=== PATIENT | male | born 1960 | race Caucasian/White ===

== ENCOUNTER 2022-11-04 12:35 | Emergency (ER) | payer OTHER, SELFPAY ==
[2022-11-04 12:46] VITALS: BP 150/93; PULSE 83; RESP 20; TEMP 36.4; O2SAT 100
--- NOTE | 2022-11-04 13:23 | ED.GENADULT ---
HPI - General Adult General Chief complaint: Eye Problems Stated complaint: left eye swollen Source: patient Mode of arrival: ambulatory Limitations: no limitations History of Present Illness HPI narrative: Patient presents for evaluation of a swollen red lesion to the left lower eyelid for the past week. Symptoms have progressed slowly. He has no associated pain. Denies drainage from the lesion. No fever, chills, nausea, vomiting. He does not were glasses or contacts. No visual disturbance. He tried applying warm compresses without considerable improvement in his symptoms. Related Data Home Medications Medication Instructions Recorded Confirmed alprazolam 0.5 mg tablet mg 11/04/22 atorvastatin 20 mg tablet mg 11/04/22 Allergies Allergy/AdvReac Type Severity Reaction Status Date / Time No Known Allergies Allergy Verified 11/04/22 12:50 Review of Systems Review of Systems: CONSTITUTIONAL: Denies fever, chills, or sweats. EYES: Denies visual changes, redness, or discharge. Reports swollen erythematous lesion to left lower eyelid ENT: Denies rhinorrhea, congestion, sore throat, or otalgia. CARDIOVASCULAR: Denies chest pain, palpitations, or edema. RESPIRATORY: Denies cough or dyspnea. GASTROINTESTINAL: Denies abdominal pain, nausea, vomiting, or diarrhea. GENITOURINARY: Denies dysuria or hematuria. SKIN: Denies rash or itching. MUSCULOSKELETAL: Denies back pain, joint pain, or myalgia. NEUROLOGIC: Denies headache, numbness, dizziness, or weakness. PSYCHIATRIC: Denies anxiety or depression. [facility] Past Medical History Medical History No pertinent past medical history Surgical History Surgical History No pertinent past surgical history Family History Family History Mother Family history non-contributory Social History Social History Smoking packs per day: 0.5 Smoking cigarettes per day: 10.0 Smoking status: Current every day smoker Substance use: never Living arrangements: alone Gender identity (if verbalized by the patient): Male Spiritual care concerns: No Exam Narrative: GENERAL: Well-appearing, well-nourished, and in no acute distress. HEAD: Normocephalic, atraumatic. EYES: PERRLA and EOMI. There is an approximately 3 mm pliable lesion to left lower eyelid with overlying erythema ENT: Nares clear, no rhinorrhea or epistaxis. Mucous membranes moist. Oropharynx without tonsillar hypertrophy exudate or other lesions. Bilateral TMs pearly naranjo nonbulging NECK: Supple. No adenopathy or masses. No carotid bruits or JVD CHEST: Clear to auscultation. No respiratory distress. No wheezes rales or rhonchi HEART: Regular rate and rhythm. No murmur heard. Normal peripheral pulses. ABDOMEN: Soft, nontender, nondistended, normal active bowel sounds. EXTREMITIES: Normal range of motion. No edema. SKIN: Warm, dry, no rash. NEURO: No focal deficits. Alert and oriented x3. PSYCH: Normal mood and affect. Course Course Emergency Course: This is a 62-year-old male who presented for evaluation of a lesion to left lower eyelid for the last week. Exam is most consistent with chalazion. Will cover with ophthalmic antibiotic ointment in the event that this is a hordeolum. Follow-up with ophthalmology. Continue to use warm compresses. For the ER for visual disturbance. Patient in agreement plan of care. Level of Care: Express Care Visit Vital Signs Vital signs: Vital Signs Temperature 36.4 C L 11/04/22 12:46 Pulse Rate 83 11/04/22 12:46 Respiratory Rate 20 11/04/22 12:46 Blood Pressure 150/93 H 11/04/22 12:46 Pulse Oximetry 100 11/04/22 12:46 Oxygen Delivery Room Air 11/04/22 12:46 Temperature 36.4 C L 11/04/22 12:46 Pulse Rate
== END 2022-11-04 13:37 | disposition home or self-care (01) ==
PROVIDERS: Emergency Provider Nurse Practitioner; PCP Family Medicine
DX: H00.15 Chalazion left lower eyelid (principal); F17.210 Nicotine dependence, cigarettes, uncomplicated
CPT/HCPCS: 99213; G0463

== ENCOUNTER 2022-11-20 15:30 | Outpatient (CLI) | payer OTHER, SELFPAY ==
--- NOTE | ~2022-11-20 | CT_ITS ---
EXAMINATION: CT lung screening DATE: 11/20/2022 15:46 INDICATION: smoking addiction TECHNIQUE: Computed tomography (CT) of the chest was performed without intravenous contrast. Addition al 3D reconstructions utilizing coronal maximum intensity projection (MIP) were performed. Automated exposure control and iterative reconstruction technique were employed. The dose-length product was 11 1.95 mGy-cm. COMPARISON: None FINDINGS: There are few calcified nodules in the right upper and middle lobes and calcified mediastinal lymph n odes consistent with old granulomatous disease. No pneumonia, pulmonary edema, pleural effusion or pn eumothorax. Heart size is normal. Atherosclerotic coronary artery calcific location. No pericardial e ffusion. Thoracic aorta is normal in caliber. No pathologically enlarged thoracic lymphadenopathy. Mi ld gynecomastia. Splenic calcifications also consistent with old granulomatous disease. Mild to moder ate thoracic spondylosis with multiple Schmorl's nodes. IMPRESSION: 1. Lung-RADS category 1: Negative. Continue annual screening with noncontrast low-dose chest CT in 12 months. Reviewed, dictated and finalized at location A. IMPRESSION: 1. Lung-RADS category 1: Negative. Continue annual screening with noncontrast l ow-dose chest CT in 12 months.
== END 2022-11-20 15:31 | disposition home or self-care (01) ==
LOC: ANHIMG 15:31
PROVIDERS: PCP Family Medicine; Visit Provider Family Medicine
DX: Z12.2 Encounter for screening for malignant neoplasm of respiratory organs (principal); Z87.891 Personal history of nicotine dependence
CPT/HCPCS: 71271

== ENCOUNTER 2023-01-30 13:23 | Outpatient (CLI) | payer OTHER, SELFPAY ==
--- NOTE | ~2023-01-30 | PE_ITS ---
EXAMINATION: PET_PETPSMAST_PT DATE: 01/30/2023 16:01 INDICATION: Prostate cancer TECHNIQUE: 8.956 mCi of pipflufolastat F-18 (18-F-DCFPyL) was administered i.v. Low dose computed to mography (CT) images were acquired from the base of the brain to the base of the brain to the proxima l thighs for attenuation correction and anatomic localization. Positron emission tomography (PET) rosa maria ges were acquired in the same distribution beginning 81 minutes after injection. Images including fus ed PET/CT images were reconstructed in axial, coronal, and sagittal planes. Automated exposure contro l technique was employed. The dose-length product was 612.57mGy-cm. COMPARISON: Chest CT dated 11/20/2022 FINDINGS: Head/neck: Typical pattern of symmetric physiologic increased activity in the lacrimal, parotid and submandibula r glands as well as along the mucosa of the nasal and oral cavities, the savage-, naso- and hypopharynx, the glottis and esophagus. No pathologically enlarged cervical lymphadenopathy or suspicious foci of increased uptake in the visualized head or neck. Chest: Mild emphysema and mild left apical scarring. Mild discoid atelectasis in the right lower lobe. Calci fied right upper and right middle lobe nodules along with calcified mediastinal lymph nodes consisten t with old granulomatous disease. No suspicious pulmonary nodules, pneumonia, pulmonary edema or pleu ral effusion. Heart size is normal. No pericardial effusion. Thoracic aorta is normal in caliber. No pathologically enlarged or PSMA avid lymphadenopathy. Abdomen/pelvis/proximal thighs: Physiologic renal accumulation and excretion of activity in the kidneys, bladder and along portions o f ureters. Status post prostatectomy. Normal degree and slightly heterogenous pattern of increased up take throughout the liver and spleen without radiologic correlate or dominant PSMA avid lesion. The g allbladder, pancreas and bilateral adrenal glands are normal. Moderate uptake scattered throughout th e bowels with typical duodenal and proximal jejunal predominance and without radiologic correlate, al so likely physiologic. No other abnormal foci of increased uptake or pathologically enlarged lymphade nopathy in the abdomen, pelvis or proximal thighs. Musculoskeletal: There is a small focus of subtle relative increased pacemaker activity with maximal SUV of 1.8 which accounting for small amount of misregistration artifact appears to be centered over the right scapula r spine near the base of the acromial process. There is a subtle focus of sclerosis here however appe ars relatively similar as seen in the contralateral left scapular spine. Additional small dense likel y bone islands at the left scapular spine which without appreciable PSMA activity. There is mild PSV may activity activity at the apex of the humeral head where there is degenerative cystic change assoc iated with severe right glenohumeral osteoarthritis. Additional mild likely degenerative uptake at th e bilateral acromioclavicular joints. Typical small foci of mild uptake at the dorsal root ganglia lo cated at the neural foramina in the cervical and lumbosacral spine. Additional mild likely degenerati ve uptake along portions of the bilateral sacroiliac joints. Tiny focus of minimal uptake with gabino l SUV of 1.4 no other lesions suspicious for metastatic disease. Located more laterally along the rig ht posterior iliac spine which is without radiologic correlate. Mild likely synovial uptake periphera l to approximately 3.5-4 cm cluster of heterotopic ossification overlying the right greater trochante r. IMPRESSION: 1. A couple tiny foci of minimal uptake at the right scapular spine and at the right posterior iliac spine, the former with possible associated small focus of sclerosis, the latter without radiologic co rrelate which raises some suspicion for but is not definitive for very early osseous metastatic disea s
== END 2023-01-30 13:24 | disposition home or self-care (01) ==
PROVIDERS: PCP Family Medicine; Visit Provider Urology
DX: C61 Malignant neoplasm of prostate (principal); R94.8 Abnormal results of function studies of other organs and systems
CPT/HCPCS: 78815; A9595

== ENCOUNTER 2023-07-04 17:12 | Emergency (ER) | payer OTHER, SELFPAY ==
[2023-07-04 17:18] VITALS: BP 167/72; RESP 16; TEMP 36.8; O2SAT 100
--- NOTE | 2023-07-04 18:34 | ED.GENADULT ---
HPI - General Adult General Chief complaint: Skin/Abscess/Foreign Body Stated complaint: L upper eyelid swelling Time Seen by Provider: 07/04/23 18:13 History of Present Illness HPI narrative: 62-year-old male presents for evaluation of redness to the left upper eyelid. Patient states over the last 2 weeks has had increased swelling of the left upper eyelid. Patient has been on antibiotics. Related Data Allergies Allergy/AdvReac Type Severity Reaction Status Date / Time No Known Allergies Allergy Verified 07/10/23 15:22 Review of Systems Review of Systems: All systems reviewed & are unremarkable except as noted in HPI and below PMFSH Past Medical History Medical History No pertinent past medical history Surgical History Surgical History No pertinent past surgical history Family History Family History Mother Family history non-contributory Father Heart disease Sibling No problems noted. 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 HEAD: normocephalic, atraumatic. EYES: Hordeolum of left upper eyelid no evidence of periorbital cellulitis or cellulitis EARS:TMS clear with good light reflex. THROAT: Pharynx clear, no exudate. NECK: Supple. No adenopathy, no masses. RESPIRATORY: Airway patent, respirations nonlabored. Clear to auscultation bilaterally, no rales, rhonchi, wheezing. CARDIOVASCULAR: Regular rate and rhythm without murmurs rubs or gallops. ABDOMINAL: Soft, nontender, nondistended, normal bowel sounds MUSCULOSKELETAL: Moves all extremities. Strength/ROM intact, No edema, No calf tenderness. NEURO: Alert. Cranial nerves II through XII intact. Grossly Course Course Emergency Course: 60-year-old male presented for evaluation for infection of the left upper eyelid that appears is consistent with a hordeolum. Patient is currently on antibiotics. Patient is doing warm compresses. Patient will have close follow-up with ophthalmology. Vital Signs Vital signs: Vital Signs Temperature 98.3 F 07/04/23 17:18 Respiratory Rate 16 07/04/23 17:18 Blood Pressure 167/72 H 07/04/23 17:18 Pulse Oximetry 100 07/04/23 17:18 Oxygen Delivery Room Air 07/04/23 17:18 Temperature 98.3 F 07/04/23 17:18 Respiratory Rate 16 07/04/23 17:18 Blood Pressure 167/72 H 07/04/23 17:18 Pulse Oximetry 100 07/04/23 17:18 Oxygen Delivery Room Air 07/04/23 17:18 Medical Decision Making Vital Signs Vital Signs: Vital Signs Temperature 98.3 F 07/04/23 17:18 Respiratory Rate 16 07/04/23 17:18 Blood Pressure 167/72 H 07/04/23 17:18 Pulse Oximetry 100 07/04/23 17:18 Oxygen Delivery Room Air 07/04/23 17:18 Temperature 98.3 F 07/04/23 17:18 Respiratory Rate 16 07/04/23 17:18 Blood Pressure 167/72 H 07/04/23 17:18 Pulse Oximetry 100 07/04/23 17:18 Oxygen Delivery Room Air 07/04/23 17:18
[2023-07-04] MEDS: HYDROcodone/acetaminophen (*CRX) 10-325 MG TABLET 1 TAB PO (18:52)
== END 2023-07-04 18:55 | disposition home or self-care (01) ==
PROVIDERS: Emergency Provider Emergency Medicine; PCP Family Medicine
DX: H00.016 Hordeolum externum left eye, unspecified eyelid (principal); F17.210 Nicotine dependence, cigarettes, uncomplicated
CPT/HCPCS: 99283; A9270

== ENCOUNTER 2023-09-19 08:46 | Outpatient (CLI) | payer OTHER, SELFPAY ==
[2023-09-19 19:00] LABS: Basophils Absolute Auto 0.1 K/mm3 (0.0-0.1); Basophils Percent Auto 0.8 % (0.2-1.2); Eosinophils Absolute Auto 0.1 K/mm3 (0-0.3); Eosinophils Percent Auto 1.2 % (0-4.4); Hematocrit 48.6 % (42.0-52.0); Hemoglobin 15.6 g/dL (14.0-18.0); Immature Granulocyte Absolute 0.04 K/mm3 (0.00-0.031); Immature Granulocyte Percent A 0.5 % (0-0.5); Lymphocytes Absolute Auto 2.31 K/mm3 (0.9-3.2); Lymphocytes Percent Auto 29.5 % (18.3-44.2); Mean Corpuscular HGB Conc 32.1 g/dl (32-36); Mean Corpuscular Hemoglobin 31.2 pg (26-34); Mean Corpuscular Volume 97.2 fl (80-100); Mean Platelet Volume 9.7 fl (7.4-10.4); Monocytes Absolute Auto 0.6 K/mm3 (0.1-0.6); Monocytes Percent Auto 7.8 % (2.6-8.5); Neutrophils Absolute Auto 4.7 K/mm3 (1.3-6.7); Neutrophils Percent Auto 60.2 % (45.5-73.1); Platelet Count Result 258 k/mm3 (150-375); Red Cell Distribution Width 12.8 % (11.5-14.5); White Blood Count 7.8 K/mm3 (4.5-10.0)
[2023-09-19 19:36] LABS: Alanine Aminotransferase 26 U/L (6-50); Albumin Level 4.3 g/dL (3.5-5.1); Alkaline Phosphatase 103 U/L (38-126); Anion Gap 8 mmol/L (8-16); Aspartate Amino Transferase 32 U/L (17-59); Bilirubin,Total 0.6 mg/dL (0.2-1.3); Blood Urea Nitrogen 9 mg/dL (9-20); Calcium 9.3 mg/dL (8.4-10.2); Carbon Dioxide 26 mmol/L (22-30); Chloride 103 mmol/L (98-107); Cholesterol 134 mg/dL (0-200); Estimated Glomerular Filt Rate > 60; Glucose 102 mg/dL (65-110); HDL Direct 43 mg/dL; Potassium 4.1 mmol/L (3.4-5.0); Sodium 137 mmol/L (137-145); Triglycerides 99 mg/dL (<150)
[2023-09-19 19:47] LABS: LDL Cholesterol Direct 66 mg/dL
[2023-09-19 20:03] LABS: Prostate Specific Antigen 4.7 ng/mL (< OR = 4.0)
== END 2023-09-19 08:47 | disposition home or self-care (01) ==
LOC: ANHBWCLAB 08:46
PROVIDERS: PCP Nurse Practitioner Adult Health; Visit Provider Nurse Practitioner Adult Health
DX: Z12.5 Encounter for screening for malignant neoplasm of prostate (principal); E78.5 Hyperlipidemia, unspecified
CPT/HCPCS: 36415; 80053; 80061; 84153; 85025; G0103

== ENCOUNTER 2023-11-15 12:28 | Outpatient (CLI) | payer OTHER, SELFPAY ==
--- NOTE | ~2023-11-15 | PE_ITS ---
EXAMINATION: PET_PETPSMAST_PT DATE: 11/15/2023 14:44 INDICATION: Prostate cancer TECHNIQUE: 9.022 mCi of pipflufolastat F-18 (18-F-DCFPyL) was administered i.v. Low dose computed to mography (CT) images were acquired from the base of the brain to the base of the brain to the proxima l thighs for attenuation correction and anatomic localization. Positron emission tomography (PET) rosa maria ges were acquired in the same distribution beginning 86 minutes after injection. Images including fus ed PET/CT images were reconstructed in axial, coronal, and sagittal planes. Automated exposure contro l technique was employed. The dose-length product was 571.01mGy-cm. COMPARISON: 01/30/2023 FINDINGS: Head/neck: Typical pattern of symmetric physiologic increased activity in the lacrimal, parotid and submandibula r glands as well as along the mucosa of the nasal and oral cavities, the savage-, naso- and hypopharynx, the glottis and esophagus. There is also a typical pattern of symmetric tiny foci of mild likely phy siologic neural ganglia uptake at a few bilateral cervical neural foramina. No pathologically enlarge d cervical lymphadenopathy or suspicious foci of increased uptake in the visualized head or neck. Chest: Mild emphysema with unchanged mild left apical pleural-parenchymal scarring. Calcified right upper an d middle lobe lobe nodules along with calcified mediastinal lymph nodes consistent with old granuloma tous disease. No suspicious pulmonary nodules, pneumonia, pulmonary edema or pleural effusion. Heart size is normal. No pericardial effusion. Thoracic aorta is normal in caliber. No pathologically enlar ged or PSMA avid thoracic lymphadenopathy. Abdomen/pelvis/proximal thighs: Physiologic renal accumulation and excretion of activity in the kidneys, bladder and along portions o f ureters. Status post prostatectomy. There are couple foci of increased uptake along the posterolate ral margin of the bladder with maximal SUV of 16.6 on the left and 15.3 on the right. These are locat ed posterior to the ureterovesicular junctions at the expected site of the bilateral seminal vesicles which raises concern for locally recurrent disease. Normal degree and slightly heterogenous pattern of increased uptake throughout the liver and spleen without radiologic correlate or dominant PSMA laith d lesion. The gallbladder, pancreas and bilateral adrenal glands are normal. Moderate uptake scattere d throughout the bowels with typical duodenal and proximal jejunal predominance and without radiologi c correlate, also likely physiologic. No other abnormal foci of increased uptake or pathologically en larged lymphadenopathy in the abdomen, pelvis or proximal thighs. There are additional small foci of mild likely physiologic neural ganglia uptake at the neural foramina at the sacral and lower lumbar s pine. Musculoskeletal: Severe bilateral glenohumeral osteoarthritis, right more advanced than left. No significant change in a small focus of mild uptake with maximal SUV of 1.9 associated with a subtle sclerotic lesion along the right scapular spine which remains suspicious for osseous metastatic disease. The previous noted small focus of mild uptake at the right posterior iliac spine is no longer identified. Again seen is a 3.5-4 cm cluster of heterotopic ossification overlying the right greater trochanter with periphera l mild likely synovial uptake. No other suspicious lytic, sclerotic or PSMA avid bone lesions identif ied. Small region of relatively intense extravasated activity at the site of injection at the right a ntecubital fossa. IMPRESSION: 1. 2 small foci of moderate uptake along the left and right posterolateral margins of the bladder pos terior to the ureterovesicular junctions in the expected location of the seminal vesicles which appea r to been resected along with the prostate but which raises concern for locally recurrent disease. 2. Unchanged t
== END 2023-11-15 12:29 | disposition home or self-care (01) ==
LOC: ANHIMG 12:33
PROVIDERS: PCP Nurse Practitioner Adult Health; Visit Provider Radiology Radiation Oncology
DX: C61 Malignant neoplasm of prostate (principal); C79.51 Secondary malignant neoplasm of bone
CPT/HCPCS: 78815; A9595

== ENCOUNTER 2025-02-02 15:54 | Emergency (ER) | payer OTHER, SELFPAY ==
[2025-02-02] VITALS (10 sets, daily range): BP systolic 143–188; BP diastolic 80–87; PULSE 71–91; RESP 13–19; TEMP 36.4; O2SAT 99–100
--- NOTE | ~2025-02-02 | XR_ITS ---
CHEST RADIOGRAPH, PA AND LATERAL CLINICAL HISTORY: dizziness . COMPARISON: None available TECHNIQUE: PA and lateral views of the chest. FINDINGS The cardiomediastinal silhouette is unremarkable. The lungs are clear. Visualized osseous structures and soft tissues are unremarkable. IMPRESSION: No focal infiltrate or effusion. Reviewed, dictated and finalized at location A.
--- NOTE | ~2025-02-02 | CT_ITS ---
History: Vertigo PROCEDURE: CT head without contrast. COMPARISON: None TECHNIQUE: Axial imaging of the head performed from the skull base to the vertex without IV contrast. Sagittal a nd coronal reformations obtained. DLP: 681 mGy-cm FINDINGS: The ventricles are normal in size, shape and position. There is no mass, mass effect or midline shift. There is no abnormal extra-axial fluid collection or intracranial hemorrhage. Dense opacification of the left maxillary sinus. The remaining paranasal sinuses are unremarkable. The mastoid air cells are well aerated. No acute displaced fractures within the overlying cranium. Impression: No acute intracranial hemorrhage or suspicious mass effect. Inflammatory sinus disease. Reviewed, dictated and finalized at location A. Impression: No acute intracranial hemorrhage or suspicious mass effect. Inflammatory sinus disease.
--- OUTSIDE RECORDS SUMMARY | 2025-02-02 15:57 | XMS_ITS | Encounter Summary ---
Author Organization [facility] Healthcare Address [address] [place] [address] Care Team Providers Care Pathology Manager Name Role Phone Sanya Fry MD Primary Care Provider Bambi Reed MD, Mitul Velazquez [facility] Encounter Details Date Type Department Care Team (Late st Contact Info) Description 07/05/2020 Telephone [facility] [address] [place] [id number] Delmy Martinez, RT Social History Tobacco Use Types Packs/Day Years Used Date Smoking Tobacco: Every Day Cigarettes 1.5 46.4 Started: 1978 Smokeless Tobacco: Never Alcohol Use Standard Drinks/Week Comments Not Currently 0 (1 standard drink = 0.6 oz pur e alcohol) PHQ-2 Answer Date Recorded PHQ-2 Score 2 07/13/2019 Sex and Gender Information Value Date Recorded Sex Assigned at Male 11/11/2018 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
--- OUTSIDE RECORDS SUMMARY | 2025-02-02 15:57 | XMS_ITS | Encounter Summary ---
Author Organization [facility] Healthcare Address [address] [place] [address] Care Team Providers Care Fresh Meat Grader Name Role Phone Sanya Fry MD Primary Care Provider Bambi Reed MD, Mitul Velazquez [facility] Encounter Details Date Type Department Care Team (Late st Contact Info) Description 05/06/2020 Telephone [facility] [address] [place] [id number] Delmy Martinez, RT Social History Tobacco Use Types Packs/Day Years Used Date Smoking Tobacco: Every Day Cigarettes 1.5 46.4 Started: 1978 Smokeless Tobacco: Never Alcohol Use Standard Drinks/Week Comments Not Currently 0 (1 standard drink = 0.6 oz pur e alcohol) PHQ-2 Answer Date Recorded PHQ-2 Score 2 07/13/2019 Sex and Gender Information Value Date Recorded Sex Assigned at Male 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
--- OUTSIDE RECORDS SUMMARY | 2025-02-02 15:57 | XMS_ITS | Continuity of Care Document ---
Author Organization [facility] Address [address] [place] [address] Phone Care Team Providers Care Cyanide Furnace Operator Name Role Phone Marko Ritter Unavailable Unavailable Procedures Procedure Date Post-op Follow-up Visit Post-op Follow-up Visit Remove Cataract, Insert Lens Eye Exam, New Patient IOLMaster Refraction Advance Directives Directive Yes / No Effective Date File Name No Information Encounters Encounter Description Practice Location Reason(s) For Visit Diagnoses Date Provider Providers Copied on Encounter [facility], [id number] [place] [address] [address], [place], [place], [id number], tel:[phone] [facility] No Information Dec-0 2-200 9 Krishnasamy Marko. [address] [address], [place], [place], [facility], [place]. tel:[phone] [facility], [address], [place], [place], [id number], [place] tel:[phone] [facility] No Information Jul-2 0-200 9 Krishnasamy Marko. [address] [facility] [address], [place], [place], [facility], [place]. tel:[phone] [facility], [address], [place], [place], [id number], [place] tel:[phone] [facility] No Information Jul-1 9-200 9 Krishnasamy Marko. [address], [address], [place]. tel:[phone] Referring Provider: Alyson Barber, [address] [place], [address]. tel:[phone] [facility], [address] [facility] [address], [place], [place], [id number], [place] tel:[phone] [facility] No Information [address]. [address], [facility], [place]. tel:[phone] Referring Provider: Marko ferguson, [facility] [address], [facility]. tel:[phone] Family History Family Member Type Diagnosis Age At Onset No Information Payers Payer name Insurance type Covered green party ID Authoriza tion(s) No Information Social History Type Description Quantity Date Captured Comments Sex Male Smoking Status No Information Chief Complaint And Reason For Visit No Information Reason For Referral Reason For Referral No Information History Of Present Illness Encounter Date Complaint History Of Prese nt Illness No Information Functional Status Date Functional Assessmen t No Information Instructions Date Instruction Additional Infor mation No Information Assessments Type Assessment Date No Information Patient Care Teams Name Effective Dates (start - stop) Status Members No Information
--- OUTSIDE RECORDS SUMMARY | 2025-02-02 15:58 | XMS_ITS ---
Author Organization [facility] Address [address] [facility] [place] [address] Care Team Providers Care Wool Sacker Name Role Phone Bambi Reed MD, Mitul Velazquez Unavailable Active Problems Problem Noted Date Diagnosed Date History of prostate cancer 07/23/2022 Chronic right shoulder pain 07/23/2022 Tobacco abuse 07/20/2021 Malignant neoplasm of prostate 01/07/2019 Cancer Staging:Pathologic:Stage IIIB(pT3b, pN0, cM0, PSA: 5.8, Grade Group: 3) - Unsigned Overview (01/07/2019): Added automatically from request for surgery History of anal cancer 12/30/2018 Mixed hyperlipidemia 07/04/2017 Primary insomnia 07/04/2017 BMI 26.0-26.9,adult 05/14/2017 Assessment & Plan (05/14/2017 3:44 PM CDT): Recommended patient to continue to increase heart healthy diet with adequate fruits, vegetables, and plenty of water along with mild-moderate daily exercise as tolerated. History of malignant neoplasm of colon 6 Condyloma acuminatum 07/28/2013 Current Treatment and Therapy Plans No current plan information found. Past Treatment and Therapy Plans No past plan information found. Lifetime Dose Tracking * Chemical Lifetime Dose Automatic Entry Manual Entr y Fluoro Time 0.7 minutes 0.7 minutes 0 minutes Air kerma at the reference point (Ka,r) 83.25 mGy 8 3.25 mGy 0 mGy DLP 2,088 mGycm 2,088 mGycm 0 mGycm Treatment Summaries Malignant neoplasm of prostate (HCC)* Images from the original note were not included. [facility] [address] [place] [address] This Survivorship Care Plan is a cancer treatment summary and follow-up plan and is provided to youto keep with your health care records and to share with your primary care provider or any of your doctors and nurses. This summary is a brief record of major aspects of your cancer treatment not a detailed or comprehensive record of your care. You should review this with your cancer provider. Treatment Summary and Survivorship Care Plan for Prostate Cancer General Information Patient name Matt Linda (home) [phone] (work) Date of 1960 Health Care Providers (Including Names, Institutions) Provider Name: Contact Information: Primary Care Physician Sanya Fry MD [phone] Surgeon Mitul Lacy Jr., MD [phone] Urologist Mitul Lacy Jr., MD [phone] Other Providers Treatment Summary Cancer Diagnosis Information Diagnosis Malignant neoplasm of prostate (CMS/HCC) Diagnosis date 12/10/2018 Staging information pT3b Panther Burn Score 7 PSA at diagnosis 5.75 Treatment Completed Surgery Surgery date 02/04/2019 Surgical procedure / location / findings Laparoscopic pelvic adhesiolysis and bilateral pelvic lymphadenectomy Laparoscopic nerve-sparing radical retropubic prostatectomy Radiation No Systemic Therapy (chemotherapy, hormonal therapy, other)-None Research Studies No available studies Treatment Ongoing: No, not at this time Persistent symptoms or side effects that have continued after finishing treatment: Erectile dysfunction, Incontinence Follow-up Care Plan Your follow-up care plan is design to inform you and primary care providers regarding the recommended and required follow-up, cancer screening and routine health maintenance that is needed to maintain optimal health. Schedule of Clinical Visits Coordinating Provider When/How often Mitul Lacy Jr., MD Yearly Cancer Surveillance or other Recommended Tests Coordinating Provider Test How Often Surgeon: Mitul Lacy Jr., MD PSA (Prostate Specific Antigen) Every 3 months for 2 years Urologist or Primary Care Provider: Mitul Lacy Jr., MD PSA (Prostate Specific Antigen) Every 6-12 months for year 3 - 5 Possible late- and long-term effects that someone with this type of cancer and treatment may experience: Urinary frequency Swelling (lymphedema) You may experience erectile dysfunction and/or incontinence care home. Please discuss with your health care provider if these continue 6 months post-surgery as there may be an available treatment foryour condition. Please continue to see your primary care provider for all general health care recommended for a patient your age, including cancer screening tests. Any symptoms should be brought to the attention of your provider: Anything that represents a brand new symptom; Anything that represents a persistent symptom; Anything you are worried about that might be related to the cancer coming back. Cancer survivors may experience issues with the areas listed below. If you have any concerns in these or other areas, please speak with your doctors or nurses to find out how you can get help with them. Anxiety and depression Emotional and mental health Fatigue Fertility Financial advice or assistance Insurance Memory or concentration loss Parenting Physical functioning School/work Sexual functioning Stopping smoking Weight changes Other A number of lifestyle/behaviors can affect your ongoing health, including the risk for the cancer coming back or developing another cancer. Discuss these recommendations with your doctor or nurse: Eat a healthy diet: focus on lean meats and proteins, more fruits, vegetables and whole grains and low in sugars and fats. Limit red meat and avoid processed meat. Maintain a healthy weight; avoid being overweight. Aim for a normal body mass index (BMI) of 18.5-24.9. Help learning to eat healthier, call the small electric engine technician at: [facility] . Have an active lifestyle, strive for 30 minutes of moderate exercise 5 times a week and strength orresistance training at least twice a week. Use broad-spectrum (UVA+UVB) sunscreen with SPF 30 or greater, is water resistant, limit time spentin the sun (10 am-4pm), wear hat, wear UV protective clothing, wear sunglasses. Never use a tanningbed. Skin that was irradiated may be more sensitive over your lifetime. Do not smoke or chew tobacco; participate in a smoking cessation program. Limit alcohol intake, 1 drink per day for a woman and 2 drinks per day for a man. Resources you may be interested in: [facility] Cancer [place] A National Cancer [place] [facility] http://www.[facility]/ [facility] Information Center 1st floor of [place] [facility] [phone]. Computer access, educational material, counseling services (FREE) Cancer Resources: www.cancer.net The U[employer] Care Foundation www.Urologyhealth.org Spring[employer] Beyond Cancer: https://survivorship.cancer.gov/ an online tool for cancer survivors andcaregivers created by the [place] [employer] Society and the National Cancer [place]. It provides: Information on dealing with side effects from cancer and treatment Caregivers with support and resources Practical advice about talking to friends and family about cancer Questions to ask their health care team Resolved Problems Problem Noted Date Diagnosed Date Resolved Date Acute bacterial conjunctivitis of right eye 05/14/2017 07/04/2017 Assessment & Plan (05/14/2017 3:44 PM CDT): Recommended use of Polytrim eyedrops 2 drops every 6 hours instill into right eye for at least 10 days along with fluticasone nasal spray to use once daily to assist to keep the inner canthus/tear duct open on the right side considering inflammation in office today. I also educated patient about frequent hand washing and a patient of warm compresses to assist with infection as well. He was advised to follow up in our office there is no improvement only worsening of symptoms in the next 48-72 hours otherwise follow up in office with Dr. 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
--- OUTSIDE RECORDS SUMMARY | 2025-02-02 15:58 | XMS_ITS | Referral Summary ---
Author Organization [facility] Address [address] [facility] [place] [address] Care Team Providers Care Liaison Officer Name Role Phone Bambi Reed MD, Mitul Hobbs Allergies No known active allergies Medications ALPRAZolam (XANAX) 0.5 mg tabletIndicatio ns:anxiety Take 1 tablet (0.5 mg total) by mouth 2 (two) times a day as needed for anxiety 60 tablet 5 05/16/2022 Active atorvastatin (LIPITOR) 20 mg tablet Take 1 tablet (20 mg total) by mouth daily 90 tablet 3 07/23/2022 Active meloxicam (MOBIC) 15 mg tablet Take 1 tablet (15 mg total) by mouth daily With food 30 tablet 1 07/23/2022 Active Active Problems Problem Noted Date Diagnosed Date [...] neoplasm of colon 6 Condyloma acuminatum 07/28/2013 Resolved Problems Problem Noted Date Diagnosed Date [...] Malignant neoplasm of anal canal 09/08/2013 07/13/2019 Immunizations Immunization Administration Dates Next Due Influenza, Quadrivalent, Spl it, Preservative Free, Intradermal 07/02/2016 Influenza, Quadrivalent, Spl it, Preservative Free, Intramuscular 07/23/2022,07/24/2021,07/18/2020,06/26,07/04/2017 Influenza, Trivalent, IM (MDV) 07/01/2015,2008 Influenza, Unspecified 06/13/2019 Social History Tobacco Use Types Packs/Day Years Used Date Smoking Tobacco: Every Day Cigarettes 0.3 46.4 Started: 1978 Smokeless Tobacco: Never Tobacco Cessation:Ready to Q uit: Not Asked; Counseling Given: Yes Alcohol Use Standard Drinks/Week Comments Not Currently 0 (1 standard drink = 0.6 oz pur e alcohol) PHQ-2 Answer Date Recorded PHQ-2 Total Score (If total score is 3 or more points, staff should administer the PHQ-9) 0 07/23/2022 Sex and Gender Information Value Date Recorded Sex Assigned at Male 11/11/2018 6:13 AM STOPPER SETTER Legal Sex Male 4:38 AM STOPPER SETTER Gender Identity Male 02/15/2022 12:05 PM CDT Sexual Orientation Straight 11/11/2018 6: 13 AM STOPPER SETTER Last Filed Vital Signs Vital Sign Reading Time Taken Comments Blood Pressure 128/78 07/23/2022 1:09 PM STOPPER SETTER Pulse 95 07/23/2022 1:09 PM STOPPER SETTER Temperature 36.6 C (97.8 F) 07/20/2021 12:59 PM STOPPER SETTER Respiratory Rate 16 07/20/2021 12:59 PM STOPPER SETTER Oxygen Saturation 97% 07/23/2022 1:09 PM STOPPER SETTER Inhaled Oxygen Concentration - - Weight 85.3 kg (188 lb) 07/23/2022 1:09 PM STOPPER SETTER Height 188 cm (6' 2) 07/23/2022 1:09 PM STOPPER SETTER Body Mass Index 24.14 07/23/2022 1:09 PM STOPPER SETTER Plan of Treatment Not on file Procedures Procedure Name Priority Date/Time Associated Diagnosis Comments PSA SCREEN Routine 07/04/2022 8:10 AM CDT Screening PSA (prostate specific antigen) STOOL DNA COLOGUARD Routine 07/31/2021 8:15 AM STOPPER SETTER Special screening for malignant neoplasms, colon Screening for malignant neoplasm of the rectum HEPATITIS C AB REFLEX RNA QUANT PCR Routine 06/20/2017 7:10 AM CDT from Last 3 Months or Most Recently Relevant to Health Maintenance Results * PSA screen (07/04/2022 8:10 AM CDT) PSA-Total 1.79 <=5.40 ng/mL KAYLEN RODRIGUEZ (CHANDA) Comment: Interpretive Data AGE SEX REFERENCE INTERVAL 0 minutes-150 years Female None 0 minutes-49 years Male None 50-59 years Male 0-3.90 60-69 years Male 0-5.40 70-79 years Male 0-6.20 80-150 years Male 0-6.20 The May PSA Total assay procedure was used. Results from different manufacturers or methods may not be comparable. Serial testing should be performed using the same method. Current interpretive data last revised 22. Testing performed by: [facility], [address] [place] [address]., [id number] Blood 07/04/2022 8:10 AM CDT 07/04/2022 11:52 AM CDT Narrative KAYLEN RODRIGUEZ (CHANDA) - 07/04/2022 1:15 PM CDT fasting us Sanya Fry MD LAB BLOOD ORDERABLES Fi nal Result KAYLEN RODRIGUEZ ([place]) 1 [facility] [place] [address] * Stool DNA - Cologuard (07/31/2021 8:15 AM STOPPER SETTER) Stool DNA - Cologuard Negative Negative [facility] (CLIA #:[id number]) Comment: NEGATIVE TEST RESULT. A negative Cologuard result indicates a low likelihood that a colorectal cancer (CRC) or advanced adenoma (adenomatous polyps with more advanced pre-malignant features) is present. The chance that a person with a negative Cologuard test has a colorectal cancer is less than 1 in 1500 (negative predictive value >99.9%) or has an advanced adenoma is less than 5.3% (negative predictive value 94.7%). These data are based on a prospective cross-sectional study of 10,000 individuals at average risk for colorectal cancer who were screened with both Cologuard and colonoscopy. (Derick Duffy et al, N Engl J Med 2014;370(14):1571-1121) The normal value (reference range) for this assay is negative. COLOGUARD RE-SCREENING RECOMMENDATION: Periodic colorectal cancer screening is an important part of preventive healthcare for asymptomatic individuals at average risk for colorectal cancer. Following a negative Cologuard result, the [place] Cancer Society and U.S. Multi-Society Task Force screening guidelines recommend a Cologuard re-screening interval of 3 years. References: [place] Cancer Society Guideline for Colorectal Cancer Screening: https://www.cancer.org/cancer/cnzpn-knjczr-hhtkkn/mqrgyzqpb-jtbdxernd-kzgaxbv/ac s-rec ommendations.html.; Rudolph LOPEZ, Jose VIGIL, Josué ANDERSON, Colorectal Cancer Screening: Recommendations for Physicians and Patients from the U.S. Multi-Society Task Force on Colorectal Cancer Screening , Am J Gastroenterology 2017; 112:0163-3043. TEST DESCRIPTION: Composite algorithmic analysis of stool DNA-biomarkers with hemoglobin immunoassay. Quantitative values of individual biomarkers are not reportable and are not associated with individual biomarker result reference ranges. Cologuard is intended for colorectal cancer screening of adults of either sex, 45 years or older, who are at average-risk for colorectal cancer (CRC). Cologuard has been approved for use by the U.S. FDA. The performance of Cologuard was established in a cross sectional study of average-risk adults aged 50-84. Cologuard performance in patients ages 45 to 49 years was estimated by sub-group analysis of near-age groups. Colonoscopies performed for a positive result may find as the most clinically significant lesion: colorectal cancer [4.0%], advanced adenoma (including sessile serrated polyps greater than or equal to 1cm diameter) [20%] or non- advanced adenoma [31%]; or no colorectal neoplasia [45%]. These estimates are derived from a prospective cross-sectional screening study of 10,000 individuals at average risk for colorectal cancer who were screened with both Cologuard and colonoscopy. (Derick Hernandez. et al, N Engl J Med 2014;370(14):5406-6872.) Cologuard may produce a false negative or false positive result (no colorectal cancer or precancerous polyp present at colonoscopy follow up). A negative Cologuard test result does not guarantee the absence of CRC or advanced adenoma (pre-cancer). The current Cologuard screening interval is every 3 years. ([place] Cancer Society and U.S. Multi-Society Task Force). Cologuard performance data in a 10,000 patient pivotal study using colonoscopy as the reference method can be accessed at the following location: www.[employer]/results. Additional description of the Cologuard test process, warnings and precautions can be found at www.cologuard.com. Stool 07/31/2021 8:15 AM STOPPER SETTER 08/01/2021 12:22 PM STOPPER SETTER us Sanya Fry MD LAB BODY FLUIDS AND STO OLS ORDERABLES Final Result [facility] (CLIA #:[id number]) [place] [address] * Hepatitis C Antibody Reflex Hepatitis C RNA Quantitative PCR (06/20/2017 7:10 AM CDT) Hep C Ab Negative Negative KAYLEN Blood specimen (specimen) 06/20/2017 7:10 AM CDT 06/20/2017 1:49 PM CDT us Sanya Fry MD LAB MICROBIOLOGY - GENE RAL ORDERABLES Final Result Performing Organization Address City/[facility] Co de Phone Number KAYLEN [address] Department [place] [address] from Last 3 Months or Most Recently Relevant to Health Maintenance Insurance [employer] MULTIPLAN C[employer] OTHER COMMERCIAL GENERIC [facility] COMMERCIAL GENERIC Advance Directives For more information, please contact: [phone] * Full Code (Latest Code Status on File) Date Activated Date Inactivated Comments 02/04/2019 2:22 PM 02/05/2019 7:50 PM * Full Code Date Activated Date Inactivated Comments 12/10/2018 10:45 AM 12/11/2018 4:46 AM Care Teams Liaison Officer Relationship Specialty Start Date End Date Mitul Lacy Jr., MD Surgeon Urology 12/30/18
--- OUTSIDE RECORDS SUMMARY | 2025-02-02 15:58 | XMS_ITS | Clinical Summary ---
Author Organization [facility] Address [address] [facility] [place] [address] Care Team Providers Care Flight Technician Name Role Phone Bambi Reed MD, Mitul [...] Trivalent, IM (MDV) 07/01/2015,2008 Influenza, Unspecified 06/13/2019 Surgical History Surgery Date Site/Laterality Comments OPEN REDUCTION INTERNAL FIXATION Left ORIF- left ankle PORT REMOVAL 02/15/2014 N/A PORT PLACEMENT CHEST >5 YEARS 09/16/2013 N/A EXAMINATION UNDER ANESTHESIA 04/07/2014 Exam under anesthesia, biopsy of anal mass and perineal biopsy EXAMINATION UNDER ANESTHESIA 08/17/2013 Exam under anesthesia, wide excision of perianal condyloma. Biopsies. PROSTATE BIOPSY COLONOSCOPY CATARACT EXTRACTION EXTRACAPSULAR W/ INTRAOCULAR LENS IMPLANTATION Bilateral CATARACT EXTRACTION 10 years ago Medical History Medical History Date Comments Malignant neoplasm of rectum (HCC) Cancer, rectal Anxiety Hypercholesteremia Family History Medical History Relation Name Comments Heart attack Father Cancer Maternal Grandfather Sabrina mae Colon cancer Maternal Grandmother Ovarian cancer Mother Colon cancer Mother's Brother Heart disease Other 1 Family history of Heart problems; Cancer Other 2 Family history of Cancer, unknown; Diabetes type II Other 3 Family hist ory of Diabetes mellitus type 2; Arthritis Other 4 Family history of Arthritis; Hypertension Other 5 Family history of Hypertension; Stroke Other 6 Family history of Stroke; Breast cancer Sister 1 Cancer Sister 2 Lina linda Relation Name Status Comments Father Maternal Grandfather Sabrina mae Maternal Grandmother Mother Mother's Brother Other 1 Other 2 Other 3 Other 4 Other 5 Other 6 Sister 1 Sister 2 Lina linda Social History Tobacco Use Types Packs/Day Years [...] Sex Assigned at Male 11/11/2018 6:13 AM DRIER HELPER Legal Sex Male 4:38 AM DRIER HELPER Gender Identity Male 02/15/2022 12:05 PM CDT Sexual Orientation Straight 11/11/2018 6: 13 AM DRIER HELPER Obstetrics History Last Filed Vital Signs Vital Sign Reading Time Taken Comments Blood Pressure 128/78 07/23/2022 1:09 PM DRIER HELPER Pulse 95 07/23/2022 1:09 PM DRIER HELPER Temperature 36.6 C (97.8 F) 07/20/2021 12:59 PM DRIER HELPER Respiratory Rate 16 07/20/2021 12:59 PM DRIER HELPER Oxygen Saturation 97% 07/23/2022 1:09 PM DRIER HELPER Inhaled Oxygen Concentration - - Weight 85.3 kg (188 lb) 07/23/2022 1:09 PM DRIER HELPER Height 188 cm (6' 2) 07/23/2022 1:09 PM DRIER HELPER Body Mass Index 24.14 07/23/2022 1:09 PM DRIER HELPER Plan of Treatment Health Maintenance Due Date Last Done Comments DTaP/Tdap/Td Vaccine (1 - Tdap) 1971 Hepatitis B Screening 1978 Pneumococcal vaccine <65 (1 of 2 - PCV) 1979 Lung Cancer Screening 2010 Zoster Vaccine (1 of 2) 2010 Prostate Cancer Screening-PSA 07/04/2023, 07/12/2021, 06/23/2020, Additional history exists Depression Screening 07/23/2023 07/23/2022, 02/27/2022, 07/20/2021, Additional history exists Regular Well Visit/Exam 18-64 07/23/2023, 07/20/2021, 07/18/2020, Additional history exists Colon Cancer Screening-DNA Stool 07/31/2024 07/31/2021, 07/16/2018, 09/11/2013 Influenza Vaccine (Season Ended) 2025 07/23/2022, 07/24/2021, 07/18/2020, Additional history exists Hepatitis C Screening Completed 06/20/2017, 017 Procedures Procedure Name Priority Date/Time Associated Diagnosis Comments PSA SCREEN Routine 07/04/2022 8:10 AM CDT Screening PSA (prostate specific antigen) STOOL DNA COLOGUARD Routine 07/31/2021 8:15 AM DRIER HELPER Special screening for malignant neoplasms, colon Screening [...] data last revised 22. Testing performed by: [facility], [address] [place] [address], [place]., [address] Blood 07/04/2022 8:10 AM CDT 07/04/2022 11:52 AM CDT Narrative KAYLEN RODRIGUEZ (CHANDA) - 07/04/2022 1:15 PM CDT fasting us Sanya Fry MD LAB BLOOD ORDERABLES Fi nal Result KAYLEN RODRIGUEZ (CHANDA) 1 [facility] Department [place] [address] * Stool DNA - Cologuard (07/31/2021 8:15 AM DRIER HELPER) Stool DNA - Cologuard Negative Negative [facility] (CLIA #:[id number]) Comment: NEGATIVE TEST RESULT. A negative Cologuard [...] Duffy et al, N Engl J Med 2014;370(14):2283-7315) The normal value (reference range) for this assay is negative. COLOGUARD RE-SCREENING RECOMMENDATION: Periodic colorectal cancer screening is an important part of preventive healthcare for asymptomatic individuals at average risk for colorectal cancer. Following a negative Cologuard result, the [place] Cancer Society and U.S. Multi-Society Task Force screening guidelines recommend a Cologuard re-screening interval of 3 years. References: [place] Cancer Society Guideline for Colorectal Cancer Screening: https://www.cancer.org/cancer/zqsyn-zhzmaj-nfwomi/gizqmhzcp-occeczjfw-ogepiig/ac s-rec ommendations.html.; Rudolph LOPEZ, Jose VIGIL, Josué ANDERSON, Colorectal Cancer Screening: Recommendations for Physicians and Patients from the U.S. Multi-Society Task Force on Colorectal Cancer Screening , Am J Gastroenterology 2017; 112:3324-9119. TEST DESCRIPTION: Composite algorithmic analysis of stool [...] screened with both Cologuard and colonoscopy. (Derick oJnes al, N Engl J Med 2014;370(14):7092-9956.) Cologuard may produce a false negative or false positive result (no colorectal cancer or precancerous polyp present at colonoscopy follow up). A negative Cologuard test result does not guarantee the absence of CRC or advanced adenoma (pre-cancer). The current Cologuard screening interval is every 3 years. ([place] Cancer Society and U.S. Multi-Society Task Force). Cologuard performance data in a 10,000 patient pivotal study using colonoscopy as the reference method can be accessed at the following location: www.[employer]/results. Additional description of the Cologuard test process, warnings and precautions can be found at www.cologuard.com. Stool 07/31/2021 8:15 AM DRIER HELPER 08/01/2021 12:22 PM DRIER HELPER us Sanya Fry MD LAB BODY FLUIDS AND STO OLS ORDERABLES Final Result [facility] (CLIA #:[id number]) [address] [address] * Hepatitis C Antibody Reflex Hepatitis C RNA Quantitative PCR (06/20/2017 7:10 AM CDT) Hep C Ab Negative Negative KAYLEN RAY Blood specimen (specimen) 06/20/2017 7:10 AM CDT 06/20/2017 1:49 PM CDT us Sanya Fry MD LAB MICROBIOLOGY - GENE RAL ORDERABLES Final Result Performing Organization Address City/[facility] Co de Phone Number [facility] [place] [address] [address] Department of Laboratories [place] [phone] from Last 3 Months or Most Recently Relevant to Health Maintenance Insurance [employer] MULTIPLAN CARE OTHER COMMERCIAL GENERIC [facility] COMMERCIAL GENERIC Advance Directives For more information, please contact: [phone] * Full Code (Latest Code Status on File) Date Activated Date Inactivated Comments 02/04/2019 2:22 PM 02/05/2019 7:50 PM * Full Code Date Activated Date Inactivated Comments 12/10/2018 10:45 AM 12/11/2018 4:46 AM Care Teams Flight Technician Relationship Specialty Start Date End Date Mitul Lacy Jr., MD Surgeon Urology 12/30/18
--- NOTE | 2025-02-02 17:13 | ED.NEUROSD ---
HPI - Neuro Symptoms/Deficit General Chief Complaint: Neuro Symptoms/Deficit <MEHREEN Rg Last Filed: 02/02/25 17:34> Stated Complaint: feeling swimmy headed-found tick on head <MEHREEN Rg Last Filed: 02/02/25 17:34> Time Seen by Provider: 02/02/25 17:13 <MEHREEN Rg Last Filed: 02/02/25 17:34> Focused HPI: Patient is a 64 y/o male who presents to the ED with c/o dizziness. Patient reports for the past few days, patient has been having lightheadedness, dizziness, swimming head sensation. Feels like the world is spinning around him and does though he will pass out. States symptoms are worse with bending over for, turning, lying flat. He has never had any symptoms like this before. He also reports having some fullness and pain in his left ear. He does note that it last night, his sister found a tick on head. she states it was fairly imbedded, but was able to be removed. Patient states he was potentially exposed to this last week during his mother's in [facility]. They did find takes on other people at that time. Patient denies any headache, vision changes, focal numbness or weakness, chest pain, shortness of breath, dysphagia, difficulty speaking. GENERAL: Well-appearing, well-nourished, and in no acute distress. HEAD: Normocephalic, atraumatic. ENT: No cerumen impaction. No significant bulging or erythema of TMs kezia NECK: No meningeal signs. CHEST: Clear to auscultation. ?No respiratory distress. HEART: Regular rate and rhythm.? NEURO: ?Alert and oriented x3. No focal deficits. Patient screened in triage and initial orders placed.? ?Additional care and disposition to be based upon?diagnostic testing and treatment. <MEHREEN Rg Last Filed: 02/02/25 17:34> Source: patient <MEHREEN Rg Last Filed: 02/02/25 17:34> Mode of arrival: ambulatory <MEHREEN Rg Last Filed: 02/02/25 17:34> Limitations: no limitations <Kathryn Cope PA-C - Last Filed: 02/02/25 17:34> History of Present Illness HPI Narrative: Agree with the HPI above. <Jeet Regan MD - Last Filed: 02/02/25 21:51> Related Data Allergies/Adverse Reactions: Allergies Allergy/AdvReac Type Severity Reaction Status Date / Time No Known Allergies Allergy Verified 02/02/25 15:55 <Kathryn Cope PA-C - Last Filed: 02/02/25 17:34> Review of Systems Review of Systems: As reviewed above in HPI <Jeet Regan MD - Last Filed: 02/02/25 21:51> PMFSH Past Medical History Medical History: Medical History No pertinent past medical history <Kathryn Cope PA-C - Last Filed: 02/02/25 17:34> Surgical History Surgical History: Surgical History No pertinent past surgical history <Kathryn Cope PA-C - Last Filed: 02/02/25 17:34> Family History Family History: Family History Mother Family history non-contributory Father Heart disease Sibling No problems noted. <Kathryn Cope PA-C - Last Filed: 02/02/25 17:34> Social History Social History: Social History Smoking packs per day: 0.5 Smoking cigarettes per day: 10.0 Smoking status: Current every day smoker Alcohol intake: never Substance use: never Substance use type: does not use Lack of Transportation: No Lack of Food: Never True Current Housing: I Have Housing Concerned About Future Housing: No Difficulty Paying Gas/Electric Bills: No Difficulty Paying for Meds: No Currently Unemployed: No Education: High School Diploma/GED Difficulty w/ Childcare or Family Care: No Living arrangements: with family Occupation/Education: occupation 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 Mucous membranes moist. NECK: Supple. CHEST: [Clear to auscultation. No respiratory distress.] HEART: [Regular rate and rhythm]. No murmur heard. [Normal peripheral pulses.] ABDOMEN: [Soft, nondistended], [nontender], [No rigidity or guarding] EXTREMITIES: Normal range of motion. [No edema.] SKIN: Warm, dry, no rash. NEURO: [No focal deficits]. Alert and oriented [x3.] PSYCH: [Normal mood and affect.] <Jeet Regan MD - Last Filed: 02/02/25 21:51> Course Vital Signs Vital signs: Vital Signs Temperature 36.4 C 02/02/25 15:57 Pulse Rate 91 02/02/25 15:57 Respiratory Rate 16 02/02/25 15:57 Blood Pressure 178/87 H 02/02/25 15:57 Pulse Oximetry 100 02/02/25 15:57 Oxygen Delivery Room Air 02/02/25 15:57 Temperature 36.4 C 02/02/25 20:53 Pulse Rate 71 02/02/25 21:30 Respiratory Rate 13 02/02/25 21:30 Blood Pressure 149/85 H 02/02/25 21:21 Pulse Oximetry 100 02/02/25 21:30 Oxygen Delivery Room Air 02/02/25 20:53 <MEHREEN Rg Last Filed: 02/02/25 17:34> Vital Signs Temperature 36.4 C 02/02/25 15:57 Pulse Rate 91 02/02/25 15:57 Respiratory Rate 16 02/02/25 15:57 Blood Pressure 178/87 H 02/02/25 15:57 Pulse Oximetry 100 02/02/25 15:57 Oxygen Delivery Room Air 02/02/25 15:57 Temperature 36.4 C 02/02/25 20:53 Pulse Rate 71 02/02/25 21:30 Respiratory Rate 13 02/02/25 21:30 Blood Pressure 149/85 H 02/02/25 21:21 Pulse Oximetry 100 02/02/25 21:30 Oxygen Delivery Room Air 02/02/25 20:53 <Jeet Regan MD - Last Filed: 02/02/25 21:51> MDM - Neuro Symptoms/Deficit MDM Narrative Medical decision making narrative: MSE by PRITI in triage. <Kathryn Cope PA-C - Last Filed: 02/02/25 17:34> MSE by PRITI in triage. 64-year-old male with a history of prostate cancer as well as anxiety. Patient presents to the emergency department with complaints of dizziness and ?swimming in his head ?symptoms going on for several days. Patient has no history of vertigo or strokes. No injury or trauma. He did find a tick on his head last night that was engorged and present for less than 2 days according to him in family. Patient is not sure if this is related. Patient is otherwise well-appearing and has no focal neurological deficits on examination. No nystagmus, no ataxia in the arms or legs. He was provided meclizine in triage after workup was ordered with complete symptomatic resolution according to him and the family member. Take was removed yesterday and does not have any evidence of retained take or foreign body in his hairline where was found. His vital signs show some mild hypertension without any significant elevations. No tachycardia, fever, hypoxia. Suspicion presently is for benign paroxysmal vertigo versus electrolyte disturbances versus dehydration versus GARIMA versus less likely stroke or intracranial pathology such as hemorrhage. Low suspicion tumor or occlusion and unlikely related to recent tick exposure. Patient was given 200 mg of p.o. doxycycline for post exposure prophylaxis of his tick exposure while workup underway. Workup shows no leukocytosis or anemia. Normal platelet count. Normal coagulation panel, normal electrolytes, normal renal and hepatic function panel. Negative troponin. Head CT shows no acute intracranial findings or mass effect, some sinus inflammation. Chest x-ray shows no focal infiltrates or effusion. EKG shows sinus rhythm without any ectopy or dysrhythmia. Patient re-evaluated had complete symptomatic resolution after the 1st dose of meclizine. He received his doxycycline for his exposure and will be prescribed meclizine p.r.n. and referred to ear nose and throat on outpatient basis. Patient and family were given her strict return precautions to watch out for and felt comfortable with discharge home at this time. <Jeet Regan MD - Last Filed: 02/02/25 21:51> Medical Records Attestation: I reviewed the patient's medical records. <Jeet Regan MD - Last Filed: 02/02/25 21:51> Lab Data Attestation: I reviewed the patient's lab results. <Jeet Regan MD - Last Filed: 02/02/25 21:51> Result diagrams: 02/02/25 17:22 02/02/25 17:22 <Kathryn Cope PA-C - Last Filed: 02/02/25 17:34> Labs: Lab Results 02/02/25 Range/Units 17:22 WBC 7.9 (4.5-10.0) K/mm3 RBC 4.88 (4.6-6.20) M/mm3 Hgb 15.2 (14.0-18.0) g/dL Hct 47.4 (42.0-52.0) % MCV 97.1 (80-100) fl MCH 31.1 (26-34) pg MCHC 32.1 (32-36) g/dl RDW 12.7 (11.5-14.5) % Plt Count 225 (150-375) k/mm3 MPV 9.4 (7.4-10.4) fl Immature Gran % (Auto) 0.3 (0-0.5) % Neut % (Auto) 64.7 (45.5-73.1) % Lymph % (Auto) 24.9 (18.3-44.2) % [place] % (Auto) 8.7 H (2.6-8.5) % Eos % (Auto) 1.0 (0-4.4) % Baso % (Auto) 0.4 (0.2-1.2) % Lymph # (Auto) 1.97 (0.9-3.2) K/mm3 [place] # (Auto) 0.7 H (0.1-0.6) K/mm3 Eos # (Auto) 0.1 (0-0.3) K/mm3 Baso # (Auto) 0.0 (0.0-0.1) K/mm3 Abs Immat Gran (auto) 0.02 (0.00-0.031) K/mm3 Absolute Neuts (auto) 5.1 (1.3-6.7) K/mm3 Absolute Nucleated RBC 0.000 (0.0-0.012) K/mm3 Nucleated RBC % 0.0 (0.0-0.2) % PT 12.3 (11.1-14.7) Seconds INR 0.9 APTT 28.7 (22.3-36.8) Seconds Sodium 140 (137-145) mmol/L Potassium 4.0 (3.4-5.0) mmol/L Chloride 103 (98-107) mmol/L Carbon Dioxide 28 (22-30) mmol/L Anion Gap 9 (4-12) mmol/L BUN 10 (9-20) mg/dL Creatinine 0.75 (0.7-1.3) mg/dL Estim Creat Clear Calc 94 ml/min Estimated GFR > 60 (59 - ) Glucose 72 (65-110) mg/dL Calcium 9.2 (8.4-10.2) mg/dL Magnesium 2.0 (1.6-2.3) mg/dL Total Bilirubin 0.4 (0.2-1.3) mg/dL AST 24 (17-59) U/L ALT 18 (6-50) U/L Alkaline Phosphatase 80 (38-126) U/L Troponin I < 0.012 (0.000-0.034) ng/mL Total Protein 7.0 (6.3-8.2) g/dL Albumin 4.6 (3.5-5.1) g/dL <Kathryn Cope PA-C - Last Filed: 02/02/25 17:34> Lab Results 02/02/25 Range/Units 17:22 WBC 7.9 (4.5-10.0) K/mm3 RBC 4.88 (4.6-6.20) M/mm3 Hgb 15.2 (14.0-18.0) g/dL Hct 47.4 (42.0-52.0) % MCV 97.1 (80-100) fl MCH 31.1 (26-34) pg MCHC 32.1 (32-36) g/dl RDW 12.7 (11.5-14.5) % Plt Count 225 (150-375) k/mm3 MPV 9.4 (7.4-10.4) fl Immature Gran % (Auto) 0.3 (0-0.5) % Neut % (Auto) 64.7 (45.5-73.1) % Lymph % (Auto) 24.9 (18.3-44.2) % [place] % (Auto) 8.7 H (2.6-8.5) % Eos % (Auto) 1.0 (0-4.4) % Baso % (Auto) 0.4 (0.2-1.2) % Lymph # (Auto) 1.97 (0.9-3.2) K/mm3 [place] # (Auto) 0.7 H (0.1-0.6) K/mm3 Eos # (Auto) 0.1 (0-0.3) K/mm3 Baso # (Auto) 0.0 (0.0-0.1) K/mm3 Abs Immat Gran (auto) 0.02 (0.00-0.031) K/mm3 Absolute Neuts (auto) 5.1 (1.3-6.7) K/mm3 Absolute Nucleated RBC 0.000 (0.0-0.012) K/mm3 Nucleated RBC % 0.0 (0.0-0.2) % PT 12.3 (11.1-14.7) Seconds INR 0.9 APTT 28.7 (22.3-36.8) Seconds Sodium 140 (137-145) mmol/L Potassium 4.0 (3.4-5.0) mmol/L Chloride 103 (98-107) mmol/L Carbon Dioxide 28 (22-30) mmol/L Anion Gap 9 (4-12) mmol/L BUN 10 (9-20) mg/dL Creatinine 0.75 (0.7-1.3) mg/dL Estim Creat Clear Calc 94 ml/min Estimated GFR > 60 (59 - ) Glucose 72 (65-110) mg/dL Calcium 9.2 (8.4-10.2) mg/dL Magnesium 2.0 (1.6-2.3) mg/dL Total Bilirubin 0.4 (0.2-1.3) mg/dL AST 24 (17-59) U/L ALT 18 (6-50) U/L Alkaline Phosphatase 80 (38-126) U/L Troponin I < 0.012 (0.000-0.034) ng/mL Total Protein 7.0 (6.3-8.2) g/dL Albumin 4.6 (3.5-5.1) g/dL <Jeet Regan MD - Last Filed: 02/02/25 21:51> Imaging Data Attestation: I personally reviewed and interpreted this imaging study as follows: <Jeet Regan MD - Last Filed: 02/02/25 21:51> My impression: Impressions Chest X-Ray 02/02/25 18:00 IMPRESSION: No focal infiltrate or effusion. Head CT 02/02/25 18:01 Impression: No acute intracranial hemorrhage or suspicious mass effect. Inflammatory sinus disease. <Jeet Regan MD - Last Filed: 02/02/25 21:51> Discharge Plan Discharge Clinical Impression: Benign paroxysmal positional vertigo, Tick bite <Kathryn Cope PA-C - Last Filed: 02/02/25 17:34> Patient Disposition: Home <Kathryn Cope PA-C - Last Filed: 02/02/25 17:34> Condition: Stable <Kathryn Cope PA-C - Last Filed: 02/02/25 17:34> Instructions: Antibiotic Form <MEHREEN Rg Last Filed: 02/02/25 17:34> Additional Instructions: We will send you home with meclizine which helped her symptoms here in the emergency department. Your symptoms are very consistent with benign vertigo which is a disorder of the inner ear system and will refer you to an ground nuclear weapons assembly officer for outpatient evaluation of this is a persistent concern. He have any worsening symptoms despite the medication or any other new concerns please return to the emergency department otherwise follow-up with regular doctors. We have given you a single dose of doxycycline for the tick exposure and you do not need any more treatments for this. <Kathryn Cope PA-C - Last Filed: 02/02/25 17:34> Patient Language: Sri Lankan <Kathryn Cope PA-C - Last Filed: 02/02/25 17:34> Prescriptions: New meclizine 25 mg tablet 25 mg PO TID PRN (Reason: dizziness) 10 Days Qty: 30 0RF No Action atorvastatin 20 mg tablet 20 mg PO DAILY Qty: 90 3RF alprazolam 0.5 mg tablet 0.5 mg PO BID PRN (Reason: anxiety) Qty: 60 2RF <Kathryn Cope PA-C - Last Filed: 02/02/25 17:34> Follow-up/Referrals: Ramesh Tafoya MD [Physician] - 1 Week (BPPV) Isatu Colby APRN [Primary Care Provider] - <Kathryn Cope PA-C - Last Filed: 02/02/25 17:34> Time of Disposition: 21:51 <Kathryn Cope PA-C - Last Filed: 02/02/25 17:34> 21:51 <Jeet Regan MD - Last Filed: 02/02/25 21:51>
--- NOTE | 2025-02-02 17:15 | ECG_ITS ---
Test Date: 2025-02-02 17:20:23 Measurements Intervals [place] Rate: 83 P: 73 SD: 173 QRS: 45 QRSD: 88 T: 57 QT: 375 QTc: 441 Interpretive Statements SINUS RHYTHM No previous ECG available for comparison Electronically Signed On 02-03-2025 16:33:07 CDT by Malick Bolden M.D.
[2025-02-02 17:27] LABS: Basophils Percent Auto 0.4 % (0.2-1.2); Eosinophils Absolute Auto 0.1 K/mm3 (0-0.3); Hematocrit 47.4 % (42.0-52.0); Hemoglobin 15.2 g/dL (14.0-18.0); Immature Granulocyte Absolute 0.02 K/mm3 (0.00-0.031); Immature Granulocyte Percent A 0.3 % (0-0.5); Lymphocytes Absolute Auto 1.97 K/mm3 (0.9-3.2); Lymphocytes Percent Auto 24.9 % (18.3-44.2); Mean Corpuscular HGB Conc 32.1 g/dl (32-36); Mean Corpuscular Hemoglobin 31.1 pg (26-34); Mean Corpuscular Volume 97.1 fl (80-100); Mean Platelet Volume 9.4 fl (7.4-10.4); Monocytes Absolute Auto 0.7 K/mm3 (0.1-0.6); Monocytes Percent Auto 8.7 % (2.6-8.5); Neutrophils Absolute Auto 5.1 K/mm3 (1.3-6.7); Neutrophils Percent Auto 64.7 % (45.5-73.1); Platelet Count Result 225 k/mm3 (150-375); Red Blood Count 4.88 M/mm3 (4.6-6.20); Red Cell Distribution Width 12.7 % (11.5-14.5); White Blood Count 7.9 K/mm3 (4.5-10.0)
[2025-02-02 17:38] LABS: INR 0.9; Prothrombin Time 12.3 Seconds (11.1-14.7)
[2025-02-02 17:39] LABS: Partial Thromboplastin Time 28.7 Seconds (22.3-36.8)
[2025-02-02 17:45] LABS: Alanine Aminotransferase 18 U/L (6-50); Albumin Level 4.6 g/dL (3.5-5.1); Alkaline Phosphatase 80 U/L (38-126); Anion Gap 9 mmol/L (4-12); Aspartate Amino Transferase 24 U/L (17-59); Bilirubin,Total 0.4 mg/dL (0.2-1.3); Blood Urea Nitrogen 10 mg/dL (9-20); Calcium 9.2 mg/dL (8.4-10.2); Carbon Dioxide 28 mmol/L (22-30); Chloride 103 mmol/L (98-107); Estimated CRCL calculation 94 ml/min; Estimated Glomerular Filt Rate > 60; Glucose 72 mg/dL (65-110); Sodium 140 mmol/L (137-145)
[2025-02-02 17:57] LABS: Troponin I < 0.012 ng/mL (0.000-0.034)
[2025-02-02] MEDS: MECLIZINE HCL 25 MG TABLET PO (18:14)
[2025-02-02] MEDS: DOXYCYCLINE HYCLATE 100 MG TABLET 200 MG PO (21:47)
--- OUTSIDE RECORDS SUMMARY | 2025-02-02 21:52 | XMS_ITS | Clinical Summary ---
Author Organization [facility] Address [address] [place] [address] Care Team Providers Care Funeral Director'S Assistant Name Role Phone Bambi Reed MD, Mitul [...] Sex Assigned at Male 11/11/2018 6:13 AM TREE GIRDLER Legal Sex Male 4:38 AM TREE GIRDLER Gender Identity Male 02/15/2022 12:05 PM CDT Sexual Orientation Straight 11/11/2018 6: 13 AM TREE GIRDLER Obstetrics History Last Filed Vital Signs Vital Sign Reading Time Taken Comments Blood Pressure 128/78 07/23/2022 1:09 PM TREE GIRDLER Pulse 95 07/23/2022 1:09 PM TREE GIRDLER Temperature 36.6 C (97.8 F) 07/20/2021 12:59 PM TREE GIRDLER Respiratory Rate 16 07/20/2021 12:59 PM TREE GIRDLER Oxygen Saturation 97% 07/23/2022 1:09 PM TREE GIRDLER Inhaled Oxygen Concentration - - Weight 85.3 kg (188 lb) 07/23/2022 1:09 PM TREE GIRDLER Height 188 cm (6' 2) 07/23/2022 1:09 PM TREE GIRDLER Body Mass Index 24.14 07/23/2022 1:09 PM TREE GIRDLER Plan of Treatment Health Maintenance Due Date [...] STOOL DNA COLOGUARD Routine 07/31/2021 8:15 AM TREE GIRDLER Special screening for malignant neoplasms, colon Screening [...] data last revised 22. Testing performed by: [facility], [address] [place] [address], [place]., [address] Blood 07/04/2022 8:10 AM CDT 07/04/2022 11:52 AM CDT Narrative KAYLEN RODRIGUEZ (CHANDA) - 07/04/2022 1:15 PM CDT fasting us Sanya Fry MD LAB BLOOD ORDERABLES Fi nal Result KAYLEN RODRIGUEZ (CHANDA) [address] [facility] Department [place] [address] * Stool DNA - Cologuard (07/31/2021 8:15 AM TREE GIRDLER) Stool DNA - Cologuard Negative Negative [employer] (CLIA #:[id number]) Comment: NEGATIVE TEST RESULT. A negative Cologuard [...] Duffy et al, N Engl J Med 2014;370(14):2183-4367) The normal value (reference range) for this assay is negative. COLOGUARD RE-SCREENING RECOMMENDATION: Periodic colorectal cancer screening is an important part of preventive healthcare for asymptomatic individuals at average risk for colorectal cancer. Following a negative Cologuard result, the [place] Cancer Society and U.S. Multi-Society Task Force screening guidelines recommend a Cologuard re-screening interval of 3 years. References: [place] Cancer Society Guideline for Colorectal Cancer Screening: https://www.cancer.org/cancer/uyfjj-blbykq-lzcftz/wxjclwvxu-pdbhkzjrq-fvmmycb/ac s-rec ommendations.html.; Rudolph LOPEZ, Jose VIGIL, Josué ANDERSON, Colorectal Cancer Screening: Recommendations for Physicians and Patients from the U.S. Multi-Society Task Force on Colorectal Cancer Screening , Am J Gastroenterology 2017; 112:9377-9249. TEST DESCRIPTION: Composite algorithmic analysis of stool [...] screened with both Cologuard and colonoscopy. (Derick Jones al, N Engl J Med 2014;370(14):5414-7265.) Cologuard may produce a false negative or false positive result (no colorectal cancer or precancerous polyp present at colonoscopy follow up). A negative Cologuard test result does not guarantee the absence of CRC or advanced adenoma (pre-cancer). The current Cologuard screening interval is every 3 years. ([place] Cancer Society and U.S. Multi-Society Task Force). Cologuard performance data in a 10,000 patient pivotal study using colonoscopy as the reference method can be accessed at the following location: www.[employer]/results. Additional description of the Cologuard test process, warnings and precautions can be found at www.cologuard.com. Stool 07/31/2021 8:15 AM TREE GIRDLER 08/01/2021 12:22 PM TREE GIRDLER us Sanya Fry MD LAB BODY FLUIDS AND STO OLS ORDERABLES Final Result [employer] (CLIA #:[id number]) [place] [address] * Hepatitis C Antibody Reflex Hepatitis C RNA Quantitative PCR (06/20/2017 7:10 AM CDT) Hep C Ab Negative Negative KAYLEN RAY Blood specimen (specimen) 06/20/2017 7:10 AM CDT 06/20/2017 1:49 PM CDT us Sanya Fry MD LAB MICROBIOLOGY - GENE RAL ORDERABLES Final Result Performing Organization Address City/[facility] Co de Phone Number [facility]NOTE 3[facility] [address] [address] Department of Laboratories [place] [phone] from Last 3 Months or Most Recently Relevant to Health Maintenance Insurance [employer] MULT[employer]LAN C[employer] OTHER COMMERCIAL GENERIC [facility] COMMERCIAL GENERIC Advance Directives For more information, please contact: [phone] * Full Code (Latest Code Status on File) Date Activated Date Inactivated Comments 02/04/2019 2:22 PM 02/05/2019 7:50 PM * Full Code Date Activated Date Inactivated Comments 12/10/2018 10:45 AM 12/11/2018 4:46 AM Care Teams Funeral Director'S Assistant Relationship Specialty Start Date End Date Mitul Lacy Jr., MD Surgeon Urology 12/30/18
--- OUTSIDE RECORDS SUMMARY | 2025-02-02 21:52 | XMS_ITS | Encounter Summary ---
Author Organization [facility] Healthcare Address [address] [place] [address] Care Team Providers Care Care Director Name Role Phone Sanya Fry MD Primary Care Provider Bambi Reed MD, Mitul Velazquez [facility] Encounter Details Date Type Department Care Team (Late st Contact Info) Description 05/06/2020 Telephone [facility] [address] [place] [id number] Delmy Martinez, RT Social History Tobacco Use Types Packs/Day Years Used Date Smoking Tobacco: Every Day Cigarettes 1.5 46.4 Started: 1978 Smokeless Tobacco: Never Alcohol Use Standard Drinks/Week Comments Not Currently 0 (1 standard drink = 0.6 oz pur e alcohol) PHQ-2 Answer Date Recorded PHQ-2 Score 2 07/13/2019 Sex and Gender Information Value Date Recorded Sex Assigned at Male 11/11/2018 6:13 AM CONDENSER CLEANER Legal Sex Male 4:38 AM CONDENSER CLEANER Gender Identity Male 02/15/2022 12:05 PM CDT Sexual Orientation Straight 11/11/2018 6: 13 AM CONDENSER CLEANER documented as of this encounter Plan of Treatment Not on file documented as of this encounter Visit Diagnoses Not on filedocumented in this encounter Care Teams Care Director Relationship Specialty Start Date End Date Sanya Fry MD PCP - General 12/07/16 11/13/22 Mitul Lacy Jr., MD Surgeon Urology 12/30/18 documented as of this encounter
--- OUTSIDE RECORDS SUMMARY | 2025-02-02 21:52 | XMS_ITS | Encounter Summary ---
Author Organization [facility] Healthcare Address [address] [place] [address] Care Team Providers Care Chocolatier Name Role Phone Sanya Fry MD Primary Care Provider Bambi Reed MD, Mitul Velazquez [facility] [phone] Encounter Details Date Type Department Care Team (Late st Contact Info) Description 07/05/2020 Telephone [facility] [address] [place] [id number] Delmy Martinez, RT Social History Tobacco Use Types Packs/Day Years Used Date Smoking Tobacco: Every Day Cigarettes 1.5 46.4 Started: 1978 Smokeless Tobacco: Never Alcohol Use Standard Drinks/Week Comments Not Currently 0 (1 standard drink = 0.6 oz pur e alcohol) PHQ-2 Answer Date Recorded PHQ-2 Score 2 07/13/2019 Sex and Gender Information Value Date Recorded Sex Assigned at Male 11/11/2018 6:13 AM SR. UNIX SYSTEM ADMINISTRATOR Legal Sex Male 4:38 AM SR. UNIX SYSTEM ADMINISTRATOR Gender Identity Male 02/15/2022 12:05 PM CDT Sexual Orientation Straight 11/11/2018 6: 13 AM SR. UNIX SYSTEM ADMINISTRATOR documented as of this encounter Plan of Treatment Not on file documented as of this encounter Visit Diagnoses Not on filedocumented in this encounter Care Teams Chocolatier Relationship Specialty Start Date End Date Sanya Fry MD PCP - General 12/07/16 11/13/22 Mitul Lacy Jr., MD Surgeon Urology 12/30/18 documented as of this encounter
--- OUTSIDE RECORDS SUMMARY | 2025-02-02 21:52 | XMS_ITS | Continuity of Care Document ---
Author Organization [facility] Address [address] [place] [address] Phone Care Team Providers Care Underwriting Clerks Supervisor Name Role Phone Marko Ritter Unavailable Unavailable Procedures Procedure Date Post-op Follow-up Visit Post-op Follow-up Visit Remove Cataract, Insert Lens Eye Exam, New Patient IOLMaster Refraction Advance Directives Directive Yes / No Effective Date File Name No Information Encounters Encounter Description Practice Location Reason(s) For Visit Diagnoses Date Provider Providers Copied on Encounter [facility], [id number] [place] [address] [address], [place], [place], [id number], tel:[phone] [facility] No Information Dec-0 2-200 9 Krishnasamy Marko. [address] [address], [place], [place], [facility], [place]. tel:[phone] [facility], [address], [place], [place], [id number], [place] tel:[phone] [facility] No Information Jul-2 0-200 9 Krishnasamy Marko. [address] [facility] [address], [place], [place], [facility], [place]. tel:[phone] [facility], [address], [place], [place], [id number], [place] tel:[phone] [facility] No Information Jul-1 9-200 9 Krishnasamy Marko. [address], [address], [place]. tel:[phone] Referring Provider: Alyson Barber, [address] [place], [address]. tel:[phone] [facility], [address], [place], [place], [id number], [place] tel:[phone] [facility] No Information [address]. [address], [facility], [place]. tel:[phone] Referring Provider: Marko ferguson, [facility] [address], [facility]. tel:[phone] Family History Family Member Type Diagnosis Age At Onset No Information Payers Payer name Insurance type Covered republican ID Authoriza tion(s) No Information Social History [...]
--- OUTSIDE RECORDS SUMMARY | 2025-02-02 21:53 | XMS_ITS ---
Author Organization [facility] Address [address] [facility] [place] [address] Care Team Providers Care Bench Worker Helper Name Role Phone Bambi Reed MD, Mitul Velazquez Unavailable [phone] Active Problems Problem Noted Date Diagnosed Date [...] from the original note were not included. [facility] [address] [place] [address] This Survivorship Care Plan is a cancer [...] General Information Patient name Matt Linda (home) [phone] (work) Date of 1960 Health Care Providers (Including Names, Institutions) Provider Name: Contact Information: Primary Care Physician Sanya Fry MD [phone] Surgeon Mitul Lacy Jr., MD [phone] Urologist Mitul Lacy Jr., MD [phone] Other Providers Treatment Summary Cancer Diagnosis Information Diagnosis Malignant neoplasm of prostate (CMS/HCC) Diagnosis date 12/10/2018 Staging information pT3b [place] Score 7 PSA at diagnosis 5.75 Treatment [...] You may experience erectile dysfunction and/or incontinence detention. Please discuss with your health care provider [...] Help learning to eat healthier, call the claims adjustor at: [facility] . Have an active lifestyle, strive for [...] man. Resources you may be interested in: [facility] http://www.[facility]/ [facility] 1st floor of [facility] [phone]. Computer access, educational material, counseling services (FREE) Cancer Resources: www.cancer.net The [facility] Foundation www.Urologyhealth.org Springboard Beyond Cancer: https://survivorship.cancer.gov/ an online tool for cancer survivors andcaregivers created by the [place] [employer] Society and the National Cancer [facility]. It provides: Information on dealing with side [...] otherwise follow up in office with Dr. 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
--- OUTSIDE RECORDS SUMMARY | 2025-02-02 21:53 | XMS_ITS | Referral Summary ---
Author Organization [facility] Address [address] [facility] [place] [address] Care Team Providers Care Press Tender Incendiary Grenade Name Role Phone Bambi Reed MD, Mitul Hobbs [phone] Allergies No known active allergies Medications ALPRAZolam [...] Sex Assigned at Male 11/11/2018 6:13 AM CHEMICAL ETCH OPERATOR Legal Sex Male 4:38 AM CHEMICAL ETCH OPERATOR Gender Identity Male 02/15/2022 12:05 PM CDT Sexual Orientation Straight 11/11/2018 6: 13 AM CHEMICAL ETCH OPERATOR Last Filed Vital Signs Vital Sign Reading Time Taken Comments Blood Pressure 128/78 07/23/2022 1:09 PM CHEMICAL ETCH OPERATOR Pulse 95 07/23/2022 1:09 PM CHEMICAL ETCH OPERATOR Temperature 36.6 C (97.8 F) 07/20/2021 12:59 PM CHEMICAL ETCH OPERATOR Respiratory Rate 16 07/20/2021 12:59 PM CHEMICAL ETCH OPERATOR Oxygen Saturation 97% 07/23/2022 1:09 PM CHEMICAL ETCH OPERATOR Inhaled Oxygen Concentration - - Weight 85.3 kg (188 lb) 07/23/2022 1:09 PM CHEMICAL ETCH OPERATOR Height 188 cm (6' 2) 07/23/2022 1:09 PM CHEMICAL ETCH OPERATOR Body Mass Index 24.14 07/23/2022 1:09 PM CHEMICAL ETCH OPERATOR Plan of Treatment Not on file Procedures Procedure Name Priority Date/Time Associated Diagnosis Comments PSA SCREEN Routine 07/04/2022 8:10 AM CDT Screening PSA (prostate specific antigen) STOOL DNA COLOGUARD Routine 07/31/2021 8:15 AM CHEMICAL ETCH OPERATOR Special screening for malignant neoplasms, colon Screening [...] data last revised 22. Testing performed by: [facility], [address] [place] [address]., [id number] Blood 07/04/2022 8:10 AM CDT 07/04/2022 11:52 AM CDT Narrative KAYLEN RODRIGUEZ ([place]) - 07/04/2022 1:15 PM CDT fasting us Sanya Fry MD LAB BLOOD ORDERABLES Fi nal Result KAYLEN RODRIGUEZ ([place]) 1 [facility] Department [place] [address] * Stool DNA - Cologuard (07/31/2021 8:15 AM CHEMICAL ETCH OPERATOR) Stool DNA - Cologuard Negative Negative [facility] (CLIA #:[id number]) Comment: NEGATIVE TEST RESULT. A negative Cologuard [...] Duffy et al, N Engl J Med 2014;370(14):5552-4357) The normal value (reference range) for this assay is negative. COLOGUARD RE-SCREENING RECOMMENDATION: Periodic colorectal cancer screening is an important part of preventive healthcare for asymptomatic individuals at average risk for colorectal cancer. Following a negative Cologuard result, the [place] Cancer Society and U.S. Multi-Society Task Force screening guidelines recommend a Cologuard re-screening interval of 3 years. References: [place] Cancer Society Guideline for Colorectal Cancer Screening: https://www.cancer.org/cancer/qppmh-qocagi-ikmjvq/xmfdumjne-ndvxkjsoa-vjkxhjn/ac s-rec ommendations.html.; Rudolph LOPEZ, Jose VIGIL, Josué ANDERSON, Colorectal Cancer Screening: Recommendations for Physicians and Patients from the U.S. Multi-Society Task Force on Colorectal Cancer Screening , Am J Gastroenterology 2017; 112:7266-0745. TEST DESCRIPTION: Composite algorithmic analysis of stool [...] Hernandez. et al, N Engl J Med 2014;370(14):7197-4515.) Cologuard may produce a false negative or false positive result (no colorectal cancer or precancerous polyp present at colonoscopy follow up). A negative Cologuard test result does not guarantee the absence of CRC or advanced adenoma (pre-cancer). The current Cologuard screening interval is every 3 years. ([place] Cancer Society and U.S. Multi-Society Task Force). Cologuard performance data in a 10,000 patient pivotal study using colonoscopy as the reference method can be accessed at the following location: www.Walkabout/results. Additional description of the Cologuard test process, warnings and precautions can be found at www.cologuard.com. Stool 07/31/2021 8:15 AM CHEMICAL ETCH OPERATOR 08/01/2021 12:22 PM CHEMICAL ETCH OPERATOR us Sanya Fry MD LAB BODY FLUIDS AND STO OLS ORDERABLES Final Result [facility] (CLIA #:[id number]) [place] [address] [address] * Hepatitis C Antibody Reflex Hepatitis C RNA Quantitative PCR (06/20/2017 7:10 AM CDT) Hep C Ab Negative Negative KAYLEN Blood specimen (specimen) 06/20/2017 7:10 AM CDT 06/20/2017 1:49 PM CDT us Sanya Fry MD LAB MICROBIOLOGY - GENE RAL ORDERABLES Final Result Performing Organization Address City/[facility] Co de Phone Number KAYLEN [phone] Department [place] [address] from Last 3 Months or Most Recently Relevant to Health Maintenance Insurance [employer] OTHER COMMERCIAL GENERIC [facility] COMMERCIAL GENERIC Advance Directives For more information, please contact: [phone] * Full Code (Latest Code Status on File) Date Activated Date Inactivated Comments 02/04/2019 2:22 PM 02/05/2019 7:50 PM * Full Code Date Activated Date Inactivated Comments 12/10/2018 10:45 AM 12/11/2018 4:46 AM Care Teams Press Tender Incendiary Grenade Relationship Specialty Start Date End Date Mitul Lacy Jr., MD Surgeon Urology 12/30/18
== END 2025-02-02 22:03 | disposition home or self-care (01) ==
LOC: ANHED 21:50
PROVIDERS: Physician Assistant; Emergency Provider Student in an Organized Health Care Education/Training Program; PCP Nurse Practitioner Adult Health
DX: H81.10 Benign paroxysmal vertigo, unspecified ear (principal); W57.XXXA Bitten or stung by nonvenomous insect and other nonvenomous arthropods, initial encounter
CPT/HCPCS: 36415; 70450; 71046; 80053; 83735; 84484; 85025; 85610; 85730; 93005; 99284; A9270

== ENCOUNTER 2025-06-22 13:37 | Emergency (ER) | payer MEDICAID, SELFPAY ==
[2025-06-22 13:42] VITALS: BP 171/75; PULSE 86; RESP 20; TEMP 36.6; O2SAT 100
--- NOTE | 2025-06-22 14:01 | ED_ITS ---
HPI - Skin/Abscess/Foreign Bdy General Chief complaint: Skin/Abscess/Foreign Body Stated complaint: insect bite on right waistline Time Seen by Provider: 06/22/25 13:45 Source: patient and RN notes reviewed Mode of arrival: ambulatory Limitations: no limitations History of Present Illness HPI narrative: 64-year-old male presents Express Care complaining of possible insect bite to his left lower quadrant/left hip. Patient said he notes that approximately 5-6 days ago. Patient denies any pain reports throat and swelling to the area. Patient denies any pruritus. Patient has any fevers advised the chest, nausea vomiting, any other symptoms. Patient tried triple antibiotic ointment unsure for did anything however reports that the redness and swelling is improving. Related Data Allergies Allergy/AdvReac Type Severity Reaction Status Date / Time No Known Allergies Allergy Verified 06/22/25 13:49 Review of Systems Review of Systems: CONSTITUTIONAL: Denies fever, chills, or sweats. EYES: Denies visual changes, redness, or discharge. ENT: Denies rhinorrhea, congestion, sore throat, or otalgia. CARDIOVASCULAR: Denies chest pain, palpitations, or edema. RESPIRATORY: Denies cough or dyspnea. GASTROINTESTINAL: Denies abdominal pain, nausea, vomiting, or diarrhea. GENITOURINARY: Denies dysuria or hematuria. SKIN: Positive for rash. Negative for itching. MUSCULOSKELETAL: Denies back pain, joint pain, or myalgia. NEUROLOGIC: Denies headache, numbness, or weakness. PSYCHIATRIC: Denies anxiety or depression. All other systems reviewed are negative, except as documented in HPI. [facility] Past Medical History Medical History No pertinent past medical history Surgical History Surgical History No pertinent past surgical history Family History Family History Mother Family history non-contributory Father Heart disease Sibling No problems noted. 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 There is no relevant family history pertinent to the patient complaint. Exam Narrative: GENERAL: This is a well-nourished, well-developed adult, in no apparent distress. They are non ill-appearing, nontoxic appearing. HEAD: normocephalic, atraumatic. EYES: Sclera clear/white. Conjunctiva normal. Vision is grossly intact. Extraocular movements intact EARS: External ears normal,Hearing grossly intact. NOSE: External nose normal THROAT: Mucous membranes moist, NECK: Neck supple, CARDIOVASCULAR: Regular rate and rhythm RESPIRATORY: Respiratory rate normal, respiratory effort nonlabored, no respiratory distress SKIN: Right lower quadrant: Erythema and swelling to the right lower quadrant near the beginning of the pannus. There is a small puncture wound with circular erythema swelling an area of erythema and swelling and a linear distribution lateral to the wound. No area of fluctuance, no induration, nontender to palpate. No exudate. Not hot to touch. No pruritus. Linear distribution is measuring approximately 3 cm long. Circular region measured approximately 2 cm x 2 cm no central clearing, no defined border. NEURO: awake, alert, and oriented to person, place and time. There were no obvious focal neurologic abnormalities. EXTREMITIES: No joint tenderness, effusion, or edema noted. BACK: Nontender without deformity. No CVA tenderness. Course Course Emergency Course: Portions of this record may have been created with voice recognition software Level of Care: Express Care Visit Vital Signs Vital signs: Vital Signs Temperature 97.9 F 06/22/25 13:42 Pulse Rate 86 06/22/25 13:42 Respiratory Rate 20 06/22/25 13:42 Blood Pressure 171/75 H 06/22/25 13:42 Pulse Oximetry 100 06/22/25 13:42 Oxygen Delivery Room Air 06/22/25 13:42 Temperature 97.9 F 06/22/25 13:42 Pulse Rate 86 06/22/25 13:42 Respiratory Rate 20 06/22/25 13:42 Blood Pressure 171/75 H 06/22/25 13:42 Pulse Oximetry 100 06/22/25 13:42 Oxygen Delivery Room Air 06/22/25 13:42 Reviewed MDM - Skin/Abscess/Foreign Bdy MDM Narrative Medical decision making narrative: Low suspicion for infection. Likely local reaction to a insect bite. Appears to be improving, will treat with triamcinolone cream. Discussed physical exam findings. Advised supportive measures and signs/symptoms to go to the ER. Pt is appropriate for outpt treatment and f/u. Differential Diagnosis Differential diagnosis: Likely abscess of skin or subcutaneous tissue, dermatophytosis, cellulitis, eczema, insect bites and contact dermatitis Critical Care Time Critical Care Time Critical Care Time: No Discharge Plan Discharge Clinical Impression: Insect bite Qualifiers: Encounter type: initial encounter Site of insect bite: abdominal wall Qualified Code(s): S30.861A - Insect bite (nonvenomous) of abdominal wall, initial encounter Patient Disposition: Home Condition: Stable Instructions: Antibiotic Form, Insect Bite or Sting (ED) Additional Instructions: Uses steroid cream as directed. Wash the area daily with mild soap and water and keep it dry. Follow-up with PCP in 3-5 days. He developed worsening redness, swelling, pain, fevers, green/yellow drainage, body aches and chills, nausea, vomiting, or any serious concerns please go to the ER immediately. Patient Language: Mongolian Prescriptions: New triamcinolone acetonide 0.5 % cream 1 applic topical BID 7 Days Qty: 15 0RF Rx Instructions: Apply to the affected area. No Action atorvastatin 20 mg tablet 20 mg PO DAILY Qty: 90 3RF alprazolam 0.5 mg tablet 0.5 mg PO BID PRN (Reason: anxiety) Qty: 60 2RF Follow-up/Referrals: Isatu Colby APRN [Primary Care Provider, [facility]] Time of Disposition: 13:57
--- OUTSIDE RECORDS SUMMARY | 2025-06-22 15:33 | XMS_ITS | Encounter Summary ---
Author Organization [facility] Address [address] [place] [address] Care Team Providers Care Rn Rehabilitation Name Role Phone Sanya Fry MD Primary Care Provider Bambi Reed MD, Mitul Velazquez Unavailable Encounter Details Date Type Department Care Team (Late st Contact Info) Description 05/06/2020 Telephone [facility] ([facility]) [address] [place] [address] [phone] Delmy Martinez, RT Social History Tobacco Use Types Packs/Day Years Used Date Smoking Tobacco: Every Day Cigarettes 1.5 46.8 Started: 1978 Smokeless Tobacco: Never Alcohol Use Standard Drinks/Week Comments Not Currently 0 (1 standard drink = 0.6 oz pur e alcohol) PHQ-2 Answer Date Recorded PHQ-2 Score 2 07/13/2019 Sex and Gender Information Value Date Recorded Sex Assigned at Male 11/11/2018 6:13 AM RELIGIOUS EDUCATOR Legal Sex Male 4:38 AM RELIGIOUS EDUCATOR Gender Identity Male 02/15/2022 12:05 PM CDT Sexual Orientation Straight 11/11/2018 6: 13 AM RELIGIOUS EDUCATOR documented as of this encounter Plan of Treatment Not on file documented as of this encounter Visit Diagnoses Not on filedocumented in this encounter Care Teams Rn Rehabilitation Relationship Specialty Start Date End Date Snaya Fry MD PCP - General 12/07/16 11/13/22 Mitul Lacy Jr., MD Surgeon Urology 12/30/18 documented as of this encounter
--- OUTSIDE RECORDS SUMMARY | 2025-06-22 15:33 | XMS_ITS | Encounter Summary ---
Author Organization [facility] Healthcare Address [address] [place] [address] Care Team Providers Care Job Tracer Name Role Phone Sanya Fry MD Primary Care Provider Bambi Reed MD, Mitul Velazquez Unavailable Encounter Details Date Type Department Care Team (Late st Contact Info) Description 07/05/2020 Telephone [facility] ([facility]) [address] [place] [address] [phone] Delmy Martinez, RT Social History Tobacco Use Types Packs/Day Years Used Date Smoking Tobacco: Every Day Cigarettes 1.5 46.8 Started: 1978 Smokeless Tobacco: Never Alcohol Use Standard Drinks/Week Comments Not Currently 0 (1 standard drink = 0.6 oz pur e alcohol) PHQ-2 Answer Date Recorded PHQ-2 Score 2 07/13/2019 Sex and Gender Information Value Date Recorded Sex Assigned at Male 11/11/2018 6:13 AM DATA SYSTEMS MANAGER Legal Sex Male 4:38 AM DATA SYSTEMS MANAGER Gender Identity Male 02/15/2022 12:05 PM CDT Sexual Orientation Straight 11/11/2018 6: 13 AM DATA SYSTEMS MANAGER documented as of this encounter Plan of Treatment Not on file documented as of this encounter Visit Diagnoses Not on filedocumented in this encounter Care Teams Job Tracer Relationship Specialty Start Date End Date Sanya Fry MD PCP - General 12/07/16 11/13/22 Mitul Lacy Jr., MD Surgeon Urology 12/30/18 documented as of this encounter
--- OUTSIDE RECORDS SUMMARY | 2025-06-22 15:34 | XMS_ITS ---
Author Organization [facility] Address [address] [facility] [place] [address] Care Team Providers Care Osteopathic Resident Name Role Phone Bambi Reed MD, Mitul [...] from the original note were not included. [facility] [address] [place] [address] This Survivorship Care Plan is a cancer [...] General Information Patient name Matt Linda (home) [phone] (work) Date of 1960 Health Care Providers (Including Names, Institutions) Provider Name: Contact Information: Primary Care Physician Sanya Fry MD [phone] Surgeon Mitul Lacy Jr., MD [phone] Urologist Mitul Lacy Jr., MD [phone] Other Providers Treatment Summary Cancer Diagnosis Information Diagnosis Malignant neoplasm of prostate (CMS/HCC) Diagnosis date 12/10/2018 Staging information pT3b [place] Score 7 PSA at diagnosis 5.75 Treatment [...] Help learning to eat healthier, call the chemical laboratory assistant at: [facility] . Have an active lifestyle, strive for [...] man. Resources you may be interested in: [facility] http://www.[facility]/ [facility] 1st floor of [facility] [phone]. Computer access, educational material, counseling services (FREE) Cancer Resources: www.cancer.net The Urology Care Foundation www.Urologyhealth.org Springboard Beyond Cancer: https://survivorship.cancer.gov/ an online tool for cancer survivors andcaregivers created by the [place] Cancer Society and the National Cancer [place]. It provides: Information on dealing with side [...]
--- OUTSIDE RECORDS SUMMARY | 2025-06-22 15:34 | XMS_ITS | Clinical Summary ---
Author Organization [facility] Address [address] [place] [address] Care Team Providers Care [employer] Debeader Name Role Phone Bambi Reed MD, Mitul Velazquez Unavailable Allergies No known active allergies Medications ALPRAZolam [...] Date Smoking Tobacco: Every Day Cigarettes 0.3 46.8 Started: 1978 Smokeless Tobacco: Never Tobacco Cessation:Ready [...] Sex Assigned at Male 11/11/2018 6:13 AM ADULT NEUROPSYCHOLOGIST Legal Sex Male 4:38 AM ADULT NEUROPSYCHOLOGIST Gender Identity Male 02/15/2022 12:05 PM CDT Sexual Orientation Straight 11/11/2018 6: 13 AM ADULT NEUROPSYCHOLOGIST Obstetrics History Last Filed Vital Signs Vital Sign Reading Time Taken Comments Blood Pressure 128/78 07/23/2022 1:09 PM ADULT NEUROPSYCHOLOGIST Pulse 95 07/23/2022 1:09 PM ADULT NEUROPSYCHOLOGIST Temperature 36.6 C (97.8 F) 07/20/2021 12:59 PM ADULT NEUROPSYCHOLOGIST Respiratory Rate 16 07/20/2021 12:59 PM ADULT NEUROPSYCHOLOGIST Oxygen Saturation 97% 07/23/2022 1:09 PM ADULT NEUROPSYCHOLOGIST Inhaled Oxygen Concentration - - Weight 85.3 kg (188 lb) 07/23/2022 1:09 PM ADULT NEUROPSYCHOLOGIST Height 188 cm (6' 2) 07/23/2022 1:09 PM ADULT NEUROPSYCHOLOGIST Body Mass Index 24.14 07/23/2022 1:09 PM ADULT NEUROPSYCHOLOGIST Plan of Treatment Health Maintenance Due Date [...] Stool 07/31/2024 07/31/2021, 07/16/2018, 09/11/2013 Influenza Vaccine (#1) 2025 , 07/23/2022, 07/24/2021, Additional history exists Hepatitis C Screening Completed 06/20/2017, 017 Procedures Procedure Name Priority Date/Time Associated Diagnosis Comments PSA SCREEN Routine 07/04/2022 8:10 AM CDT Screening PSA (prostate specific antigen) STOOL DNA COLOGUARD Routine 07/31/2021 8:15 AM ADULT NEUROPSYCHOLOGIST Special screening for malignant neoplasms, colon Screening [...] data last revised 22. Testing performed by: [facility], [address] [place] [address]., [id number] Blood 07/04/2022 8:10 AM CDT 07/04/2022 11:52 AM CDT Narrative KAYLEN RODRIGUEZ ([place]HELLO) - 07/04/2022 1:15 PM CDT fasting Sanya Fry MD LAB BLOOD ORDERABLES Fi nal Result KAYLEN RODRIGUEZ ([place]HELLO) [address] [facility] [place] [address] * Stool DNA - Cologuard (07/31/2021 8:15 AM ADULT NEUROPSYCHOLOGIST) Stool DNA - Cologuard Negative Negative [facility] (CLIA #:[id number]) Comment: NEGATIVE TEST RESULT. A negative Cologuard [...] (Derick Jones al, N Engl J Med 2014;370(14):7171-7757) The normal value (reference range) for this assay is negative. COLOGUARD RE-SCREENING RECOMMENDATION: Periodic colorectal cancer screening is an important part of preventive healthcare for asymptomatic individuals at average risk for colorectal cancer. Following a negative Cologuard result, the [place] [employer] and U.S. Multi-Society Task Force screening guidelines recommend a Cologuard re-screening interval of 3 years. References: [place] [employer] Guideline for Colorectal Cancer Screening: https://www.cancer.org/cancer/htesm-wtcils-bkdrbn/vaepekxnb-fxfowewhg-cyqclph/ac s-rec ommendations.html.; Rudolph DK, Jose CR, Josué BarberK, Colorectal Cancer Screening: Recommendations for Physicians and Patients from the U.S. Multi-Society Task Force on Colorectal Cancer Screening , Am J Gastroenterology 2017; 112:2175-1525. TEST DESCRIPTION: Composite algorithmic analysis of stool [...] (Derick Jones al, N Engl J Med 2014;370(14):4784-1273.) Cologuard may produce a false negative or false positive result (no colorectal cancer or precancerous polyp present at colonoscopy follow up). A negative Cologuard test result does not guarantee the absence of CRC or advanced adenoma (pre-cancer). The current Cologuard screening interval is every 3 years. ([place] [employer] and U.S. Multi-Society Task Force). Cologuard performance data in a 10,000 patient pivotal study using colonoscopy as the reference method can be accessed at the following location: www.[employer]/results. Additional description of the Cologuard test process, warnings and precautions can be found at www.colCrowdScannerrrd.com. Stool 07/31/2021 8:15 AM ADULT NEUROPSYCHOLOGIST 08/01/2021 12:22 PM ADULT NEUROPSYCHOLOGIST us Sanya Fry MD LAB BODY FLUIDS AND STO OLS ORDERABLES Final Result [facility] (CLIA #:[id number]) [place] [address] * Hepatitis C Antibody Reflex Hepatitis C RNA Quantitative PCR (06/20/2017 7:10 AM CDT) Hep C Ab Negative Negative KAYLEN RAY Blood specimen (specimen) 06/20/2017 7:10 AM CDT 06/20/2017 1:49 PM CDT us Sanya Fry MD LAB MICROBIOLOGY - GENE RAL ORDERABLES Final Result KAYLEN [id number] Department [place] [address] from Last 3 Months or Most Recently Relevant to Health Maintenance Insurance [employer] OTHER COMMERCIAL GENERIC [address] [employer] Advance Directives For more information, please contact: [phone] * Full Code (Latest Code Status on File) Date Activated Date Inactivated Comments 02/04/2019 2:22 PM 02/05/2019 7:50 PM * Full Code Date Activated Date Inactivated Comments 12/10/2018 10:45 AM 12/11/2018 4:46 AM Care Teams T[employer] Debeader Relationship Specialty Start Date End Date Mitul Lacy Jr., MD Surgeon Urology 12/30/18
== END 2025-06-22 14:01 | disposition home or self-care (01) ==
PROVIDERS: PCP Nurse Practitioner Adult Health
DX: S30.861A Insect bite (nonvenomous) of abdominal wall, initial encounter (principal); W57.XXXA Bitten or stung by nonvenomous insect and other nonvenomous arthropods, initial encounter; F17.210 Nicotine dependence, cigarettes, uncomplicated
CPT/HCPCS: 99213; G0463